=== PATIENT | female | born 1945 | race Caucasian/White ===

== ENCOUNTER 2017-12-02 02:06 | Inpatient (IN) ==
[2017-12-02] MEDS ORDERED: OXYCODONE Oral CONC 10 MG/0.5 ML ORAL.SYG SL PRN ×3 (05:24→09:26)
[2017-12-02] MEDS ORDERED: Ondansetron ODT 4 MG TAB.RAPDIS SL PRN ×2 (05:24→17:07)
[2017-12-02] MEDS ORDERED: Naloxone 0.4 MG/ML INJ IVP PRN ×2 (05:24→17:07)
--- NOTE | 2017-12-02 05:49 | Internal Med History&Physical ---
Date of Encounter: 12/02/17 Time of Encounter: 05:49 Internal Medicine - H&P: HPI Chief complaint: abdominal pain Admitted From: Hospital to Hospital Transfer Plans for Post Hospital Care: Home History of present illness: Ms. RICHARD is a 72 year old female hx gastric sleeve presented to [place] ED for abdominal pain. Onset at 5 pm at eating hamburger a [employer] followed by one episode of vomiting. She had bowel movement his morning that was hard but no red blood, white mucus or dark tarry. She was able to tolerate breakfast this morning with out difficulty. Associated symptoms low back pain. In [place] ED, found to have irregular heart rhythm with HR 66, BP 182/83 RR 17 , 100% RA. CT showed small bowel obstruction and pancreatic duct dilatation. WBC 17.9. CMP mostly normal but alk phos 143 and glucose 139. CRP and Lactic acid wnl. Lipase and Amylase wnl. Her blood pressure was elevated at 188/120 but came down to 158/101 after treated with hydralazine. Her pain was treated with three doses of Dilaudid 1mg. Given 1 L IVF and IV zosyn. PMHx of HLD, hearing deficit, and VÍCTOR. Obesity and HTN resolved after 50 lbs weight loss post gastric sleeve in February 2017. Surgical history also includes hysterectomy. No family history of DM, IBS or IBD. She quit smoking over 30 years ago. Denies EtOH or Illicit drug use. Past Med Surg Social Fam HX - Social History Smoking Status: Never smoker Smokeless Tobacco Status: No Alcohol use: none Drug use: none - Family History Mother Living Status: Hx Family Cardiac Disorders: No Hx Family Respiratory Disorders: No Hx Family Cancer: No Hx Family GI Disorders: No Hx Family Genitourinary Disorders: No Hx Family Endocrine Disorder: No Hx Family Musculoskeletal Disorders: No Hx Family Neuromuscular Disorders: No Hx Family Neurologic Disorders: No Hx Family HEENT Disorders: No Hx Family Autoimmune Disorders: No Hx Family Reproductive Disorders: No Hx Family Psychosocial Disorders: No Hx Family Medical Disorders: No Father Living Status: Hx Family Cardiac Disorders: Yes Hx Family Respiratory Disorders: No Hx Family Cancer: No Hx Family GI Disorders: No Hx Family Genitourinary Disorders: No Hx Family Endocrine Disorder: No Hx Family Musculoskeletal Disorders: No Hx Family Neuromuscular Disorders: No Hx Family Neurologic Disorders: No Hx Family HEENT Disorders: No Hx Family Autoimmune Disorders: No Hx Family Reproductive Disorders: No Hx Family Psychosocial Disorders: No Hx Family Medical Disorders: No Internal Medicine - H&P: Meds 3 Allergy/AdvReac Type Severity Reaction Status Date / Time No Known Allergies Allergy Verified 12/02/17 05:39 All Systems PM: A 10-system review of systems was performed and is negative for pertinent findings except as documented above in the HPI. - Constitutional Constitutional: weight loss, no fatigue, no fever(s) Additional comments: loss of 51 lb since Feb 2017 due t gastric sleeve - EENT Eyes: no blurry vision Nose, mouth and throat: nasal congestion - Cardiovascular Cardiovascular ROS IM: no chest pain, no edema, no irregular heart rhythm, no lightheadedness, no palpitations - Respiratory Respiratory: no cough, no dyspnea on exertion, no wheezing - Gastrointestinal Gastrointestinal: abdominal pain, constipation, nausea, vomiting, no diarrhea, no excessive flatus - Genitourinary Genitourinary: no dysuria, no hematuria, no urinary frequency - Musculoskeletal Musculoskeletal ROS IM: no joint swelling, no tingling - Neurological Neurological ROS: no confusion, no dizziness, no headache(s) - Constitutional General appearance: Present: mild distress, A&O X 3, answers questions appropriately Exam: drowsy and slurring her words - Head Head exam: Present: atraumatic, normocephalic - Eye Pupils: Present: fixed, miosis. Absent: mydriatic - ENT ENT exam: Present: mucous membranes dry, normal oropharynx - Neck Neck exam general surgery: Absent: lymphadenopathy, tenderness - Respiratory Respiratory exam: Present: CTAB. Absent: rales, wheezes - Cardiovascular Cardiovascular exam: Present: RRR, tachycardia. Absent: gallop, rubs - GI/Abdominal GI/Abdominal exam: Present: hypoactive bowel sounds, soft, tenderness. Absent: guarding, rebound Additional comments: diffuse abdominal tenderness worse in epigastric region - Expanded GI/Abdominal Exam GI/Abdominal exam expanded: Present: Shannon's sign - Extremities Exam Extremities exam: Present: full ROM, radial pulses palpable and symmetrical. Absent: pedal edema, tenderness - Back Exam Back exam: Present: full ROM, normal inspection. Absent: CVA tenderness (L), CVA tenderness (R), tenderness - Psychiatric Psychiatric exam: Present: normal affect, normal mood - Skin Skin exam: Absent: diaphoretic, erythema - Assessment and plan (1) Small bowel obstruction Current Visit: Yes Status: Acute Assessment and plan: CT abd report from [place] shows "closed loop small bowel obstruction" and "dilated pancreatic duct with out obvious cause" - Surgery already consulted by [place] ED -NPO - place NG - Zofran PRN - Ketorolac PRN - IVF NS 1L (2) Pancreatic duct dilated Current Visit: Yes Status: Acute Assessment and plan: CT abd "dilated pancreatic duct with out obvious cause" - radiology recommended MRCP - imaging CD is being uploaded - consult GI but call not completed yet (3) Elevated blood pressure reading Current Visit: Yes Status: Acute Assessment and plan: History of HTN that resolved post gastric sleeve weight loss but elevated BP reading at [facility] of 180/120 down to 158/101 after hydralazine - hydralazine PRN for SBP over 160 (4) Obstructive sleep apnea Current Visit: Yes Status: Acute Assessment and plan: CPAP at night (5) Hyperlipidemia Current Visit: Yes Status: Acute Assessment and plan: hold PO medications (6) Irregular heart rhythm Current Visit: Yes Status: Acute Assessment and plan: Irregular rhythm noted in ED course but tachycardic and regular on admit - EKG: sinus tachycardia (7) DVT prophylaxis Current Visit: Yes Status: Acute Assessment and plan: heparin sq - Time Spent With Patient Total time spent is greater than 50% in coordination of care (as documented) at patient's floor/unit and/or counseling patient: Greater than 35 minutes
[2017-12-02] MEDS ORDERED: Ketorolac 15 MG/ML VIAL IVP PRN (05:56)
[2017-12-02] MEDS ORDERED: 0.9 % Sodium Chloride 1,000 ML IVC SCH (06:00)
[2017-12-02] MEDS ORDERED: *HR* Morphine 2 MG/ML SYRINGE IVP PRN (07:10)
[2017-12-02 07:56] LABS: Alanine Aminotransferase 15 Units/L (7-52); Albumin 4.1 g/dL (3.5-5.7); Albumin/Globulin Ratio 1.2 (1.1-2.2); Alkaline Phosphatase 139 Units/L (34-104); Aspartate Amino Transferase 19 Units/L (13-39); BUN/Creatinine Ratio 27 (6-26); Basophils % 0.1 %; Bilirubin,Total 0.3 mg/dL (0.3-1.0); Blood Urea Nitrogen 27 mg/dL (8-23); Calcium 9.7 mg/dL (8.6-10.3); Carbon Dioxide 22 mEq/L (23-29); Chloride 104 mEq/L (98-107); Globulin 3.4 g/dL (2.4-3.5); Glucose 316 mg/dL (70-105); Hematocrit 47.5 % (35.3-44.9); Immature Granulocytes % 0.5 % (0-4); Lymphocytes # 1.2 K/mcL (0.6-4.6); Lymphocytes % 5.7 %; Mean Corpuscular HGB Conc 33.7 g/dL (31.6-35.5); Mean Corpuscular Hemoglobin 31.6 pg (28.0-33.3); Mean Corpuscular Volume 93.9 fL (83.0-100.0); Monocytes # 0.8 K/mcL (0.0-1.3); Monocytes % 3.8 %; Neutrophils # 19.4 K/mcL (1.6-8.9); Osmolality,Calculated 305 (280-300); Platelet Count 349 K/mcL (140-400); Potassium 3.3 mEq/L (3.5-5.1); Red Blood Count 5.06 M/mcL (3.82-4.97); Red Cell Distribution Width 13.1 % (11.5-14.5); Segmented Neutrophils % 89.9 %; Sodium 139 mEq/L (136-145); Total Protein 7.5 g/dL (6.4-8.9); eGFR For Non-African Americans 55 (> 60)
[2017-12-02 08:00] LABS: INR 1.1
[2017-12-02] MEDS ORDERED: OXYCODONE Oral CONC 10 MG/0.5 ML ORAL.SYG SL SCH ×2 (08:00)
--- NOTE | 2017-12-02 10:21 | Event Note ---
Date of Encounter: 12/02/17 Time of Encounter: 10:[address] report from outside facility and advises this is a surgical case, will see pt after surgical workup if needed. Call out to hospitalist Aleksandr Mcdonald, awaiting return call.
--- NOTE | 2017-12-02 11:39 | General Surgery Consult Note ---
<Los Mccall R - Last Filed: 12/02/17 11:37> Date of Encounter: 12/02/17 Time of Encounter: 07:45 Assessment and Plan (1) Small bowel obstruction Current Visit: Yes Status: Acute CD from [place] ED was uploaded to the PACs. CT scan was reviewed by Dr. Laureano and found to be consistent with small bowel obstruction. This was discussed with the patient and all questions were answered. Plan: To OR for Exploratory laparotomy today NPO NG to LIWS Comfort care and pain management prn antiemetic IV fluids (2) DVT prophylaxis Current Visit: Yes Status: Acute EPCDs Ambulation ad elian History of Present Illness Consult date: 12/02/17 (Dr. Laureano) Reason for consult: other (SBO) Requesting physician: Sydney Brown History of present illness: Patient is a 72-year-old female with a history of HLD, HTN, obesity, S/P gastric sleeve February of 2017 with subsequent 50 pound weight loss. Patient reports onset of abdominal pain and vomiting yesterday evening at approximately 5 PM after eating dinner. Pain has persisted. Currently not nauseous or vomiting. One bowel movement this morning, firming consistency, no visible blood. Patient denies similar pain. Patient was initially evaluated at the [facility] ED. CT abdomen and pelvis revealed small bowel obstruction and pancreatic duct dilation. WBC 17.9, bp 182/83, tachycardic. Patient was transferred to [facility] for further evaluation and management. Patient has been placed on nothing by mouth diet, NG tube to low intermittent wall suction. Patient reports improvement in pain with pain medication however still persists. Denies hematemesis, melena, hematochezia. Denies chest pain or shortness of breath. Surgical history significant for gastric sleeve and prior hysterectomy. Past Med Surg Social Fam HX - Past Surgical History Surgical History: hysterectomy Additional surgical history: Gastric sleeve- Feb 2017 - Social History Smoking Status: Never smoker Smokeless Tobacco Status: No Alcohol use: none Drug use: none - Family History Mother Living Status: Hx Family Cardiac Disorders: No Hx Family Respiratory Disorders: No Hx Family Cancer: No Hx Family GI Disorders: No Hx Family Genitourinary Disorders: No Hx Family Endocrine Disorder: No Hx Family Musculoskeletal Disorders: No Hx Family Neuromuscular Disorders: No Hx Family Neurologic Disorders: No Hx Family HEENT Disorders: No Hx Family Autoimmune Disorders: No Hx Family Reproductive Disorders: No Hx Family Psychosocial Disorders: No Hx Family Medical Disorders: No Father Living Status: Hx Family Cardiac Disorders: Yes Hx Family Respiratory Disorders: No Hx Family Cancer: No Hx Family GI Disorders: No Hx Family Genitourinary Disorders: No Hx Family Endocrine Disorder: No Hx Family Musculoskeletal Disorders: No Hx Family Neuromuscular Disorders: No Hx Family Neurologic Disorders: No Hx Family HEENT Disorders: No Hx Family Autoimmune Disorders: No Hx Family Reproductive Disorders: No Hx Family Psychosocial Disorders: No Hx Family Medical Disorders: No Medications and Allergies Albuterol Sulfate [Ventolin Hfa] 2 puff IH AD 12/02/17 [History] Atorvastatin [Lipitor] 10 mg PO HS 12/02/17 [History] Calcium Citrate 500 mg PO DAILY 12/02/17 [History] Cholecalciferol (D-3) [Vitamin D] 15,000 unit PO QWEEK 12/02/17 [History] Cyanocobalamin (Vitamin B-12) [Vitamin B-12] 1,000 mcg PO DAILY 12/02/17 [ History] Ferrous Sulfate 0.5 tab PO DAILY 12/02/17 [History] Fluticasone/Salmeterol [Advair 250-50 Diskus] 1 puff IH AD 12/02/17 [History] Multivitamin [One Daily Multivitamin] 1 tab PO DAILY 12/02/17 [History] 3 Allergy/AdvReac Type Severity Reaction Status Date / Time No Known Allergies Allergy Verified 12/02/17 08:30 Review of Systems All systems PM: The remainder of the systems were reviewed and are negative - Constitutional no chills, no fever(s) - Cardiovascular no chest pain, no dyspnea - Gastrointestinal abdominal pain, nausea, vomiting, no coffee ground emesis, no constipation, no diarrhea, no dysphagia, no hematemesis, no hematochezia, no melena, no odynophagia General Surgery Exam Initial Vital Signs Pulse Resp BP Pulse Ox 120 12 127/91 96 12/02/17 05:33 12/02/17 05:33 12/02/17 05:33 12/02/17 05:33 - General physical appearance well developed, well nourished, moderate distress, moderate pain - Eyes PERRL, normal ocular movement - ENT normal mucosa, atraumatic, normocephalic - Neck trachea midline - Respiratory normal expansion, normal respiratory effort - Cardiovascular Cardiovascular exam: Present: tachycardia - Abdomen Abdomen general surgery: Present: bowel sounds present, distended, tender ( diffusely tender to palpation). Absent: rebound - Integumentary Integumentary general surgery: Present: warm and dry - Neurologic Present: CN 2-12 grossly intact - Musculoskeletal Present: normal posture - Psychiatric Psychiatric general surgery: Present: A&Ox3, speech is normal, memory intact Exam Initial Vital Signs Pulse Resp BP Pulse Ox 120 12 127/91 96 12/02/17 05:33 12/02/17 05:33 12/02/17 05:33 12/02/17 05:33 Results - Labs 12/02/17 07:20 12/02/17 07:20 Abnormal lab results WBC 21.6 K/mcL (4.3-11.1) H 12/02/17 07:20 RBC 5.06 M/mcL (3.82-4.97) H 12/02/17 07:20 Hgb 16.0 g/dL (11.5-15.4) H 12/02/17 07:20 Hct 47.5 % (35.3-44.9) H 12/02/17 07:20 Neutrophils # 19.4 K/mcL (1.6-8.9) H 12/02/17 07:20 Potassium 3.3 mEq/L (3.5-5.1) L 12/02/17 07:20 Carbon Dioxide 22 mEq/L (23-29) L 12/02/17 07:20 BUN 27 mg/dL (8-23) H 12/02/17 07:20 Est GFR (Non-Af Amer) 55 (> 60) L 12/02/17 07:20 BUN/Creatinine Ratio 27 (6-26) H 12/02/17 07:20 Glucose 316 mg/dL (70-105) H 12/02/17 07:20 Calculated Osmolality 305 (280-300) H 12/02/17 07:20 Alkaline Phosphatase 139 Units/L (34-104) H 12/02/17 07:20 Diabetes panel 12/02/17 Range/Units 07:20 Sodium 139 (136-145) mEq/L Potassium 3.3 L (3.5-5.1) mEq/L Chloride 104 (98-107) mEq/L Carbon Dioxide 22 L (23-29) mEq/L BUN 27 H (8-23) mg/dL Creatinine 1.00 (0.60-1.20) mg/dL Glucose 316 H (70-105) mg/dL Calcium 9.7 (8.6-10.3) mg/dL AST 19 (13-39) Units/L ALT 15 (7-52) Units/L Alkaline Phosphatase 139 H (34-104) Units/L Albumin 4.1 (3.5-5.7) g/dL Calcium panel 12/02/17 Range/Units 07:20 Calcium 9.7 (8.6-10.3) mg/dL Albumin 4.1 (3.5-5.7) g/dL Pituitary panel 12/02/17 Range/Units 07:20 Sodium 139 (136-145) mEq/L Potassium 3.3 L (3.5-5.1) mEq/L Chloride 104 (98-107) mEq/L Carbon Dioxide 22 L (23-29) mEq/L BUN 27 H (8-23) mg/dL Creatinine 1.00 (0.60-1.20) mg/dL Glucose 316 H (70-105) mg/dL Calcium 9.7 (8.6-10.3) mg/dL Adrenal panel 12/02/17 Range/Units 07:20 Sodium 139 (136-145) mEq/L Potassium 3.3 L (3.5-5.1) mEq/L Chloride 104 (98-107) mEq/L Carbon Dioxide 22 L (23-29) mEq/L BUN 27 H (8-23) mg/dL Creatinine 1.00 (0.60-1.20) mg/dL Glucose 316 H (70-105) mg/dL Calcium 9.7 (8.6-10.3) mg/dL Total Bilirubin 0.3 (0.3-1.0) mg/dL AST 19 (13-39) Units/L ALT 15 (7-52) Units/L Alkaline Phosphatase 139 H (34-104) Units/L Albumin 4.1 (3.5-5.7) g/dL All other labs normal. Consult Discharge Plan - Plan Referrals: NONE,PCP [Primary Care Provider] - <Prem Laureano - Last Filed: 12/02/17 13:38> Date of Encounter: 12/02/17 Review of Systems All systems PM: The remainder of the systems were reviewed and are negative General Surgery Exam Initial Vital Signs Pulse Resp BP Pulse Ox 120 12 127/91 96 12/02/17 05:33 12/02/17 05:33 12/02/17 05:33 12/02/17 05:33 Exam Initial Vital Signs Pulse Resp BP Pulse Ox 120 12 127/91 96 12/02/17 05:33 12/02/17 05:33 12/02/17 05:33 12/02/17 05:33 Results - Labs 12/02/17 07:20 12/02/17 07:20 Abnormal lab results WBC 21.6 K/mcL (4.3-11.1) H 12/02/17 07:20 RBC 5.06 M/mcL (3.82-4.97) H 12/02/17 07:20 Hgb 16.0 g/dL (11.5-15.4) H 12/02/17 07:20 Hct 47.5 % (35.3-44.9) H 12/02/17 07:20 Neutrophils # 19.4 K/mcL (1.6-8.9) H 12/02/17 07:20 Potassium 3.3 mEq/L (3.5-5.1) L 12/02/17 07:20 Carbon Dioxide 22 mEq/L (23-29) L 12/02/17 07:20 BUN 27 mg/dL (8-23) H 12/02/17 07:20 Est GFR (Non-Af Amer) 55 (> 60) L 12/02/17 07:20 BUN/Creatinine Ratio 27 (6-26) H 12/02/17 07:20 Glucose 316 mg/dL (70-105) H 12/02/17 07:20 Calculated Osmolality 305 (280-300) H 12/02/17 07:20 Alkaline Phosphatase 139 Units/L (34-104) H 12/02/17 07:20 Diabetes panel 12/02/17 Range/Units 07:20 Sodium 139 (136-145) mEq/L Potassium 3.3 L (3.5-5.1) mEq/L Chloride 104 (98-107) mEq/L Carbon Dioxide 22 L (23-29) mEq/L BUN 27 H (8-23) mg/dL Creatinine 1.00 (0.60-1.20) mg/dL Glucose 316 H (70-105) mg/dL Calcium 9.7 (8.6-10.3) mg/dL AST 19 (13-39) Units/L ALT 15 (7-52) Units/L Alkaline Phosphatase 139 H (34-104) Units/L Albumin 4.1 (3.5-5.7) g/dL Calcium panel 12/02/17 Range/Units 07:20 Calcium 9.7 (8.6-10.3) mg/dL Albumin 4.1 (3.5-5.7) g/dL Pituitary panel 12/02/17 Range/Units 07:20 Sodium 139 (136-145) mEq/L Potassium 3.3 L (3.5-5.1) mEq/L Chloride 104 (98-107) mEq/L Carbon Dioxide 22 L (23-29) mEq/L BUN 27 H (8-23) mg/dL Creatinine 1.00 (0.60-1.20) mg/dL Glucose 316 H (70-105) mg/dL Calcium 9.7 (8.6-10.3) mg/dL Adrenal panel 12/02/17 Range/Units 07:20 Sodium 139 (136-145) mEq/L Potassium 3.3 L (3.5-5.1) mEq/L Chloride 104 (98-107) mEq/L Carbon Dioxide 22 L (23-29) mEq/L BUN 27 H (8-23) mg/dL Creatinine 1.00 (0.60-1.20) mg/dL Glucose 316 H (70-105) mg/dL Calcium 9.7 (8.6-10.3) mg/dL Total Bilirubin 0.3 (0.3-1.0) mg/dL AST 19 (13-39) Units/L ALT 15 (7-52) Units/L Alkaline Phosphatase 139 H (34-104) Units/L Albumin 4.1 (3.5-5.7) g/dL All other labs normal. - Attending Attestation I examined this patient and my medical decision-making was reviewed with the Resident Physician. I agree with the documented findings, disposition and treatment plan as described except to the extent set forth below. The patient is seen and evaluated with rest and on morning rounds. She appears to have a closed loop obstruction involving the small bowel in the pelvis. This may be from adhesion or volvulus. She is very symptomatic with tremendous pain and nausea. I recommended exploratory laparotomy with possible small bowel resection. We will proceed later today. Next I personally reviewed the CAT scan images. Findings are consistent with closed loop small bowel obstruction in the pelvis Prem Laureano MD FACS
--- NOTE | 2017-12-02 12:45 | Internal Med Progress Note ---
Hospitalist Progress Note - Encounter Date of Encounter: 12/02/17 Time of Encounter: 12:42 - Subjective Interval History: Patient seen and examined at bedside today. Continuing to have persistent abdominal pain as well as nausea. Admitted with abdominal pain nausea and vomiting. CT abdomen and pelvis from [facility] revealed a closed loop small bowel obstruction as well as pancreatic duct dilatation. Surgical history significant for gastric sleeve in February 2017. - Exam Vitals: Temp Pulse Resp BP Pulse Ox 96.4 F L 118 16 88/69 98 12/02/17 11:30 12/02/17 11:30 12/02/17 11:30 12/02/17 11:30 12/02/17 11:30 Exam: PHYSICAL EXAMINATION: GENERAL: The patient is an ill-appearing elderly female in distress due to abdominal pain. She is alert and oriented 3 HEENT: Head is normocephalic and atraumatic. Extraocular muscles are intact. Pupils are equal, round, and reactive to light and accommodation. Nares appeared normal. Mouth is well hydrated and without lesions. Mucous membranes are moist. NECK: Supple. No carotid bruits. No lymphadenopathy or thyromegaly. LUNGS: Clear to auscultation. HEART: Regular rate and rhythm without murmur. ABDOMEN: Soft, and nondistended. Positive bowel sounds. No hepatosplenomegaly was noted. Diffuse tenderness to palpation, no rebound noted EXTREMITIES: Without any cyanosis, clubbing, rash, lesions or edema. NEUROLOGIC: Cranial nerves II through XII are grossly intact. SKIN: No ulceration or induration present, warm and dry. - Assessment and Plan (1) Small bowel obstruction Current Visit: Yes Status: Acute (2) Hyperlipidemia Current Visit: Yes Status: Acute (3) Irregular heart rhythm Current Visit: Yes Status: Acute (4) Obstructive sleep apnea Current Visit: Yes Status: Acute (5) Pancreatic duct dilated Current Visit: Yes Status: Acute (6) History of hypertension Current Visit: Yes Status: Acute (7) Sepsis Current Visit: Yes Status: Acute (8) Nausea and vomiting Current Visit: Yes Status: Acute (9) DVT prophylaxis Current Visit: Yes Status: Acute - Summary of Assessment and Plan Summary of Assessment and Plan: Mr. Baltazar is a 72-year-old female who presents from [place] ED for abdominal pain, nausea and vomiting. CT of abdomen and pelvis obtained from [facility] showing a closed loop small bowel obstruction and pancreatic duct dilatation. At that time she was found to have an elevated white count of 17.9. Subsequently she was sent to [facility] for further treatment evaluation and likely surgical intervention. Per my assessment this morning the patient is continuing to have abdominal pain with diffuse abdominal tenderness to palpation , she is tachycardic and hypotensive and hypothermic as well and she now appears to be septic. There is an NG tube in place which is currently on intermittent low wall suction. She is continuing to have nausea. I have Discussed her case with GI; who has advised surgical consultation. Of note the patient was found to have pancreatic ductal dilatation will likely need follow- up with MRCP at some time. However, current treatment focused on small bowel obstruction. Surgery seeing in consultation, appreciate recommendations and thank you. Nursing staff relayed to me that the surgeon (Dr. Laureano) states he will take the patient for surgery this evening. In the meantime giving concern for sepsis I will start the patient on Zosyn every 8 hours IV piggyback. Additionally, continue to treat with antiemetics and oxycodone for pain. I will obtain a stat lactic acid now. She is receiving a 500 mL normal saline bolus due to hypotension. She will be placed on a bear hugger at this time due to hypothermia, plan is to transfer to higher level of care [address] [place] [address] ICU stepdown unit. This has been discussed with patient management team who is working on placing the patient. DIAGNOSIS: 1-small bowel obstruction--surgery following an recommendation, appreciate recommendations and thank you. Patient to undergo surgical intervention this afternoon 2-sepsis--tachycardia, leukocytosis, hypotension, hypothermia, closed loop small bowel obstruction; obtain stat lactic acid now, start Zosyn, implement. However, transfer to unit with higher level of acuity 3-pancreatic duct dilatation--consult GI when appropriate, patient will need MRCP for further evaluation 4-hypertension--per history, however presently she is hypotensive in the setting of sepsis; hold anti-HTN medications 5-obstructive sleep apnea--CPAP at night 6-hyperlipidemia--take statin at home however is currently nothing by mouth, resume when appropriate 7-nausea and vomiting--continue antiemetics 8-irregular heart rhythm--continues to have tachycardia in the setting of sepsis , continuous telemetry and monitor closely monitor telemetry for arrhythmias and monitoring the dynamic compromise 9-DVT prophylaxis--EPCD's 10-hypotension--has a history of hypertension however in the setting of sepsis patient is hypotensive. Continue to treat with IV fluid bolus. Hold anti-HTN medications. - Time Spent with Patient Total time spent is greater than 50% in coordination of care (as documented) at patient's floor/unit and/or counseling patient: less than 15 minutes Plan of Care Discussed with: patient Internal Medicine: Result - Labs CBC & Chem 7: 12/02/17 07:20 12/02/17 07:20 Labs: Short CBC 12/02/17 Range/Units 07:20 WBC 21.6 H (4.3-11.1) K/mcL Hgb 16.0 H (11.5-15.4) g/dL Hct 47.5 H (35.3-44.9) % Plt Count 349 (140-400) K/mcL Neutrophils # 19.4 H (1.6-8.9) K/mcL BMP 12/02/17 07:20 Sodium 139 Potassium 3.3 L Chloride 104 Carbon Dioxide 22 L BUN 27 H Creatinine 1.00 Glucose 316 H Calcium 9.7 Liver Function 12/02/17 Range/Units 07:20 Total Bilirubin 0.3 (0.3-1.0) mg/dL AST 19 (13-39) Units/L ALT 15 (7-52) Units/L Alkaline Phosphatase 139 H (34-104) Units/L Albumin 4.1 (3.5-5.7) g/dL - ABG Interpretation ABG results: PT/INR, D-dimer PT 12.0 Seconds (9.4-12.1) 12/02/17 07:20 - Impressions Impressions KUB X-Ray 12/02/17 06:37 IMPRESSION: Enteric tube tip is excluded on this exam however the side port projects over the stomach. D/ / Virginia Jordan MD / Virginia Jordan MD Interpreting Provider: Virginia Jordan MD Consult Discharge Plan - Plan Referrals: NONE,PCP [Primary Care Provider] - (2) Hyperlipidemia Qualifiers: Hyperlipidemia type: unspecified Qualified Code(s): E78.5 - Hyperlipidemia, unspecified
[2017-12-02] MEDS ORDERED: 0.9 % Sodium Chloride 500 ML IVC PRN ×2 (12:49→17:07)
[2017-12-02] MEDS ORDERED: *HR* Heparin 5,000 UNIT/ML VIAL SQ SCH (14:00)
[2017-12-02] MEDS ORDERED: 0.9 % Sodium Chloride 1,000 ML IVC ONE ×2 (14:30→17:07)
[2017-12-02] MEDS ORDERED: *HR* FentaNYL (PF) 100 MCG/2 ML VIAL ONE (14:58)
[2017-12-02] MEDS ORDERED: *HR* Succinylcholine 200 MG/10 ML VIAL IVP ONE (14:59)
[2017-12-02] MEDS ORDERED: *HR* Propofol 200 MG/20 ML VIAL IVP ONE (14:59)
[2017-12-02] MEDS ORDERED: Ondansetron 4 MG/2 ML VIAL ONE (14:59)
[2017-12-02] MEDS ORDERED: Dexamethasone 4 MG/ML VIAL ONE (14:59)
[2017-12-02] MEDS ORDERED: Lidocaine -MPF 2% 2 ML VIAL ONE (14:59)
[2017-12-02] MEDS ORDERED: *HR* Rocuronium Bromide 50 MG/5 ML VIAL ONE (14:59)
--- NOTE | 2017-12-02 15:04 | Anesthesia Evaluation PreOp ---
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 Any Significant HX Other Medical History: Denies Any Significant HX, GERD (vomiting, abdominal pain ) Anesthesia History: Past Anesthesia Alcohol Use: none Drug use: none Medications and Allergies Albuterol Sulfate [Ventolin Hfa] 2 puff IH AD 12/02/17 [History] Atorvastatin [Lipitor] 10 mg PO HS 12/02/17 [History] Calcium Citrate 500 mg PO DAILY 12/02/17 [History] Cholecalciferol (D-3) [Vitamin D] 15,000 unit PO QWEEK 12/02/17 [History] Cyanocobalamin (Vitamin B-12) [Vitamin B-12] 1,000 mcg PO DAILY 12/02/17 [ History] Ferrous Sulfate 0.5 tab PO DAILY 12/02/17 [History] Fluticasone/Salmeterol [Advair 250-50 Diskus] 1 puff IH AD 12/02/17 [History] Multivitamin [One Daily Multivitamin] 1 tab PO DAILY 12/02/17 [History] 3 Allergy/AdvReac Type Severity Reaction Status Date / Time No Known Allergies Allergy Verified 12/02/17 08:30 - Meds/Allergy Pre-op Review Medications Reviewed: Yes Allergies Reviewed: Yes Beta Blockers on Current Med List: No Anesthesia Results - Labs 12/02/17 07:20 12/02/17 07:20 - Imaging EKG: pending Anesthesia Exam Selected Entries 12/02/17 12:45 Temperature 97.5 F L Pulse Rate 115 Respiratory Rate 17 Blood Pressure 104/72 O2 Sat by Pulse Oximetry 97 Weight: 67 kg NPO (# of Hours): over 8 hours/NG in place - HEENT Pupil (Motor): Pupils equal Mallampati: II Teeth: Edentulous Oral Opening: Greater than 3 - Cardiac Rhythm: Regular (tachycardic) - Pulmonary Breath Sounds: bilateral Rhonchi Respiratory Effort: Symmetrical - Additional Findings Ill appearing patient with low to normal blood pressure, even though usually hypertensive. Presumed impending sepsis, will fluid resuscitate prior to OR. Anesthesia Assess/Plan ASA Score: 3, E Modified Toribio Scale for Level of Consciousness: Cooperative, oriented, and tranquil Anesthetic Plan: General Monitoring Plan: Standard Monitors, A-Line Recovery Plan: PACU (Discussed GA, risks. Agreed to proceed.)
[2017-12-02] MEDS ORDERED: Heparin 1,000 UNITS/500 mL 500 ML ONE (15:07)
[2017-12-02] MEDS ORDERED: CefOXitin 1,000 MG VIAL ONE (15:15)
[2017-12-02] MEDS ORDERED: Albumin Human 5% 25.0 GM/500 ML VIAL ONE ×3 (15:17→17:16)
[2017-12-02] MEDS ORDERED: *HR* Midazolam HCl 2 MG/2 ML VIAL ONE (15:43)
[2017-12-02] MEDS ORDERED: Piperacillin/Tazobactam 3.375 GM in 0.9 % Sodium Chloride Mini Bag 100 ML IVPB SCH (16:00)
[2017-12-02] MEDS ORDERED: *HR* PHENYLEPHRINE 1,000 MCG/10 ML SYRINGE IVP ONE (16:02)
--- NOTE | 2017-12-02 16:41 | Operative Note ---
Date of procedure: 12/02/17 Pre-op diagnosis: Small bowel obstruction Post-op diagnosis: other (150 cm small bowel necrosis) Procedure: Small bowel resection 150 cm Anesthesia: GETA Surgeon: Prem Laureano Was there an liaison inspection laboratory assistant present: No Estimated blood loss (cc): 50 Specimen: 150 cm ileum Condition: critical Disposition: ICU Procedure in Detail: After informed consent patient was taken to the major operative suite. During transport it was noted she was hypotensive . resuscitation was started the moment she reached the operating room. She had pain out of proportion to physical examination. She was taken to the major operative suite and a Ledezma catheter was placed and an arterial line was placed. The abdomen was prepped and draped in sterile fashion utilizing ChloraPrep standard draping techniques. Timeout was taken and the patient was identified. I performed a midline laparotomy and immediately noted gut. With further exploration there appeared to be a midgut volvulus around a single adhesive band. I divided the band and release the volvulus. The small bowel was completely necrotic with hemorrhagic necrosis. I divided the small bowel proximal with MEGAN and distal with MEGAN. Using clamps and hemostatic ligatures I divided the mesentery to the area of bowel necrosis. The small bowel that was necrotic was completely resected. This was measured. 150 cm of small bowel was resected. The area of resection contain day hemorrhagic Meckel's diverticulum but this was not the point of volvulus. The terminal ileum was divided about 20 cm proximal to the cecum. I observed the small bowel for 15 minutes. The small bowel was pink and well vascularized the 2 areas of small bowel that I selected were proximal and distal to the area of adhesion and not involved in volvulus. I decided a primary anastomosis the circumflex the patient. I created a functional end-to- end anastomosis using MEGAN and TA 60. The staple anastomosis was circumferentially reinforced with interrupted 3-0 silk in interrupted 2-0 silk. The mesentery was closed with interrupted 3-0 silk and 2-0 silk. The abdomen was irrigated with copious amounts of antibiotic containing solution the midline was closed with looped 0 PDS and skin was closed with interrupted Vicryl and skin clips. She was hypotensive at the beginning of the procedure and required pressor agents. At the end of the case she was still on pressor agents but her systolic pressure was 110. She is transferred to the intensive care unit for ongoing therapy
[2017-12-02] MEDS ORDERED: Artificial Tears SOLN 15 ML BOTTLE BOTH EYES PRN ×2 (16:44→17:07)
[2017-12-02] MEDS ORDERED: Dexmedetomidine HCl 400 MCG/100 ML MLS IVC SCH (16:45)
[2017-12-02] MEDS ORDERED: FentaNYL (PF) 1,000 MCG in 0.9 % Sodium Chloride 80 ML IVC SCH (16:45)
[2017-12-02] MEDS ORDERED: Pantoprazole 40 MG VIAL IVP SCH (16:45)
[2017-12-02] MEDS ORDERED: Norepinephrine 4 MG in D5% in Water 250 ML IVC SCH (16:45)
[2017-12-02 17:11] LABS: Mean Corpuscular HGB Conc 33.9 g/dL (31.6-35.5); Mean Corpuscular Hemoglobin 32.3 pg (28.0-33.3); Mean Corpuscular Volume 95.1 fL (83.0-100.0); Mean Platelet Volume 11.8 fL (9.4-12.4); Platelet Count 252 K/mcL (140-400); Red Blood Count 3.47 M/mcL (3.82-4.97)
[2017-12-02 17:12] LABS: Hemoglobin 11.2 g/dL (11.5-15.4)
[2017-12-02 17:12] LABS: ABG Base Excess -7 mEq/L (-2 to 3); ABG HCO3 19 mEq/L (21-27); ABG Oxygen Saturation 98 % (95-98); ABG PCO2 37 mmHg (35-45); ABG PH 7.32 pH Units (7.32-7.45); ABG PO2 115 mmHg (85-104); ABG TCO2 20 mEq/L (20-26); Blood Gas Modality ASSIST CONTROL; Blood Gas PEEP 5 cm H2O; Blood Gas Respiration Rate 16; Blood Gas VT 400 cc
[2017-12-02 17:29] LABS: Alanine Aminotransferase 9 Units/L (7-52); Albumin 3.6 g/dL (3.5-5.7); Alkaline Phosphatase 76 Units/L (34-104); Aspartate Amino Transferase 15 Units/L (13-39); BUN/Creatinine Ratio 27 (6-26); Bilirubin,Total 0.3 mg/dL (0.3-1.0); Blood Urea Nitrogen 28 mg/dL (8-23); Calcium 8.4 mg/dL (8.6-10.3); Carbon Dioxide 20 mEq/L (23-29); Chloride 116 mEq/L (98-107); Globulin 1.8 g/dL (2.4-3.5); Glucose 173 mg/dL (70-105); Osmolality,Calculated 306 (280-300); Potassium 4.1 mEq/L (3.5-5.1); Sodium 143 mEq/L (136-145); Total Protein 5.4 g/dL (6.4-8.9); eGFR For Non-African Americans 53 (> 60)
[2017-12-02 17:30] LABS: Lymphocytes # 2.1 K/mcL (0.6-4.6); Monocytes # 2.1 K/mcL (0.0-1.3); Neutrophils # 22.3 K/mcL (1.6-8.9); Platelet Estimate Normal (Normal)
--- NOTE | 2017-12-02 17:55 | Procedure Note ---
Date of procedure: 12/02/17 Pre-op diagnosis: Septic shock Post-op diagnosis: same Procedure: Central venous catheter insertion Surgeon: Martin Pacheco Was there an assistant attorney general present: No Estimated blood loss (cc): 0 Specimen: none Pathology: none sent Procedures: Internal Med - Central Line Placement Right Femoral Consent Obtained: written consent (by (patient sedated critically ill) ) Time out performed: Yes Patient placed on monitor/pulse ox: Yes MD prep: mask, gown, gloves, other Central line prep: Chlorhexidine scrub, sterile drapes applied Amount of anesthesia used (mls): 8 Ultrasound used for placement: Yes Central line lumen inserted: triple Post Procedure: sutured in place, good blood return, all ports aspirated, flushed, capped, sterile dressing applied, dark venous blood, biodisk applied Post procedure x-ray: other Patient tolerated procedure: well, no complications Complications: none
[2017-12-02 17:59] LABS: Magnesium 1.6 mg/dL (1.6-2.6)
[2017-12-02 18:06] LABS: Troponin I 1.03 ng/mL (< 0.04)
[2017-12-02] MEDS: Dexmedetomidine HCl 400 MCG/100 ML MLS IVC SCH (18:15)
[2017-12-02] MEDS: Piperacillin/Tazobactam 3.375 GM in 0.9 % Sodium Chloride Mini Bag 100 ML IVPB SCH (18:19)
--- NOTE | 2017-12-02 19:00 | Pulmonology Consult Note ---
<Fady Grant - Last Filed: 12/02/17 21:44> Date of Encounter: 12/02/17 Time of Encounter: 19:00 Assessment and Plan (1) Septic shock Current Visit: Yes Status: Acute Patient met septic shock criteria with leukocytosis WBC 26.5, tachycardia 120, and hypotension despite IV fluid resuscitation Bowel necrosis as likely source of infection, differential includes SBP Patient started on Levophed head and given Albumin 2 to maintain MAP greater than 65 Blood cultures pending Continue Zosyn (day 1) De-escalate antibiotics based on culture results Continue close monitoring (2) Ischemic necrosis of small bowel Current Visit: Yes Status: Acute Postop day 1 status post 150 cm small bowel resection due to small bowel necrosis Continue postop pain control, PPI, and antiemetics NG tube in place on low intermittent suction General surgery following (3) Endotracheally intubated Current Visit: Yes Status: Acute Patient remains intubated status post bowel resection Continue light Precedex ABG reviewed, Continue current ventilator settings and plan to extubate once clinically improving Repeat ABG pending (4) Non-sustained ventricular tachycardia Current Visit: Yes Status: Acute Patient has had several runs of non-sustained V. tach on telemetry Pacer pads in place on chest Patient is currently in sinus bradycardia Continue telemetry monitoring (5) Elevated troponin Current Visit: Yes Status: Acute Elevated troponin in the setting of septic shock and abdominal surgery Initial EKG 12/02/17 6:09 revealed sinus tachycardia heart rate 116, flipped T waves V2 through V5 Most recent EKG 12/02/17 17:46 revealed sinus rhythm heart rate 71, no signs of ischemia Patient denies chest pain at this time, continue monitoring (6) HTN (hypertension) Current Visit: No Status: Chronic Hold antihypertensive meds secondary to septic shock Continue close monitoring Qualifiers: Hypertension type: essential hypertension Qualified Code(s): I10 - Essential (primary) hypertension (7) Hyperlipidemia Current Visit: Yes Status: Chronic Resume home statin once extubated Qualifiers: Hyperlipidemia type: unspecified Qualified Code(s): E78.5 - Hyperlipidemia , unspecified (8) History of gastric bypass Current Visit: No Status: Chronic Continue current therapy (9) Obstructive sleep apnea Current Visit: Yes Status: Chronic Patient is currently on ventilator, resume CPAP at bedtime once extubated (10) DVT prophylaxis Current Visit: Yes Status: Acute EPCDs History of Present Illness Consult date: 12/02/17 Requesting physician: Prem Laureano Reason for consult: other Chief complaint: Abdominal pain History of present illness: Ms. Baltazar is a 72-year-old female with a past medical history of gastric sleeve, hypertension, hyperlipidemia, and VÍCTOR who was transferred from [facility] secondary to small bowel obstruction. History of present illness was obtained from the medical record because the patient was intubated during the time of my exam and unable to answer questions after returning from surgery. Records from [facility] revealed vital signs HR 66, BP 182/83 RR 17, 100% RA and labs revealed WBC 17.9, normal lactic acid level, CRP, amylase, and lipase levels. CT abdomen pelvis revealed small bowel obstruction and pancreatic duct dilatation. She was evaluated by general surgery and underwent resection of 150 cm necrotic small bowel and transfer to ICU intubated. Patient required central line placement secondary to refractory hypotension/septic shock despite IV fluid resuscitation. WBC increased to 26.5, hemoglobin dropped from 16 to 11.2, and troponin level was 1.03. Patient had nonsustained ventricular tachycardia on telemetry. Initial EKG showed flipped T waves and repeat EKGs show no signs of ischemia. Past Med Surg Social Fam HX - Past Medical History Medical history: hyperlipidemia, hypertension Additional medical history: VÍCTOR - Past Surgical History Surgical History: hysterectomy Additional surgical history: Gastric sleeve- Feb 2017 - Social History Smoking Status: Never smoker Smokeless Tobacco Status: No Alcohol use: none Drug use: none Current living situation: Home, With Family - Family History Mother Living Status: Hx Family Cardiac Disorders: No Hx Family Respiratory Disorders: No Hx Family Cancer: No Hx Family GI Disorders: No Hx Family Genitourinary Disorders: No Hx Family Endocrine Disorder: No Hx Family Musculoskeletal Disorders: No Hx Family Neuromuscular Disorders: No Hx Family Neurologic Disorders: No Hx Family HEENT Disorders: No Hx Family Autoimmune Disorders: No Hx Family Reproductive Disorders: No Hx Family Psychosocial Disorders: No Hx Family Medical Disorders: No Father Living Status: Hx Family Cardiac Disorders: Yes Hx Family Respiratory Disorders: No Hx Family Cancer: No Hx Family GI Disorders: No Hx Family Genitourinary Disorders: No Hx Family Endocrine Disorder: No Hx Family Musculoskeletal Disorders: No Hx Family Neuromuscular Disorders: No Hx Family Neurologic Disorders: No Hx Family HEENT Disorders: No Hx Family Autoimmune Disorders: No Hx Family Reproductive Disorders: No Hx Family Psychosocial Disorders: No Hx Family Medical Disorders: No Medications and Allergies Albuterol Sulfate [Ventolin Hfa] 2 puff IH AD 12/02/17 [History] Atorvastatin [Lipitor] 10 mg PO HS 12/02/17 [History] Calcium Citrate 500 mg PO DAILY 12/02/17 [History] Cholecalciferol (D-3) [Vitamin D] 15,000 unit PO QWEEK 12/02/17 [History] Cyanocobalamin (Vitamin B-12) [Vitamin B-12] 1,000 mcg PO DAILY 12/02/17 [ History] Ferrous Sulfate 0.5 tab PO DAILY 12/02/17 [History] Fluticasone/Salmeterol [Advair 250-50 Diskus] 1 puff IH AD 12/02/17 [History] Multivitamin [One Daily Multivitamin] 1 tab PO DAILY 12/02/17 [History] 3 Allergy/AdvReac Type Severity Reaction Status Date / Time No Known Allergies Allergy Verified 12/02/17 08:30 ROS unobtainable: due to endotracheal tube All Systems: The remainder of the systems were reviewed and are negative Physical Examination Vital Signs: Vital Signs, Last 4 Hours Temp Pulse Resp BP Pulse Ox 12/02/17 18:48 96.6 F L 70 16 118/63 99 12/02/17 17:59 96.7 F L 80 16 129/73 100 12/02/17 17:35 78 14 138/80 100 12/02/17 17:30 96.9 F L 81 14 120/72 100 12/02/17 17:20 65 14 116/62 99 12/02/17 17:05 75 14 134/75 99 12/02/17 16:57 16 100 12/02/17 16:50 96.9 F L 82 14 120/68 100 General appearance: no acute distress (Intubated, awake off sedation) Eyes: nonicteric ENT: oropharynx dry (Intubated) Neck: supple Effort: normal Inspection: normal Auscultation: bilateral: diminished breath sounds (Intubated, equal breath sounds) Cardiovascular: regular rate and rhythm (Bradycardia), PVC's noted (Nonsustained ) Gastrointestinal: normoactive bowel sounds, non-distended Integumentary: other (Pale, anterior abdominal incision dressing intact) Extremities: no edema, other (Warm) Musculoskeletal: no deformities Gait: normal posture non-focal exam, pupils equal and round (Able to follow commands and shake head to answer questions) Ventilator Settings Ventilator Settings: Ventilator Settings, Last 8 Hours Ventilator Tidal Volume 400 Setting Ventilator Tidal Volume 400 Setting Ventilator Tidal Volume 400 Setting Ventilator Tidal Volume 400 Setting Ventilator Respiratory Rate 16 Setting Ventilator Respiratory Rate 16 Setting Ventilator Respiratory Rate 16 Setting Ventilator Respiratory Rate 16 Setting Actual Respiratory Rate 16 Actual Respiratory Rate 16 Actual Respiratory Rate 16 Positive End Expiratory 5 Pressure Positive End Expiratory 5 Pressure Positive End Expiratory 5 Pressure Positive End Expiratory 5 Pressure Peak Inspiratory Airway 26 Pressure Peak Inspiratory Airway 29 Pressure Peak Inspiratory Airway 25 Pressure Results - Laboratory Findings CBC and BMP: 12/02/17 16:39 12/02/17 16:39 ABG ABG pH 7.32 pH Units (7.32-7.45) 12/02/17 17:10 ABG pCO2 37 mmHg (35-45) 12/02/17 17:10 ABG pO2 115 mmHg (85-104) H 12/02/17 17:10 ABG O2 Saturation 98 % (95-98) 12/02/17 17:10 PT/INR, D-dimer PT 12.0 Seconds (9.4-12.1) 12/02/17 07:20 Abnormal lab findings: Abnormal lab results WBC 26.5 K/mcL (4.3-11.1) H 12/02/17 16:39 RBC 3.47 M/mcL (3.82-4.97) L 12/02/17 16:39 Hgb 11.2 g/dL (11.5-15.4) L D 12/02/17 16:39 Hct 33.0 % (35.3-44.9) L 12/02/17 16:39 Neutrophils # 22.3 K/mcL (1.6-8.9) H 12/02/17 16:39 Monocytes # 2.1 K/mcL (0.0-1.3) H 12/02/17 16:39 ABG pO2 115 mmHg (85-104) H 12/02/17 17:10 ABG HCO3 19 mEq/L (21-27) L 12/02/17 17:10 ABG Base Excess -7 mEq/L (-2 to 3) L 12/02/17 17:10 Chloride 116 mEq/L (98-107) H 12/02/17 16:39 Carbon Dioxide 20 mEq/L (23-29) L 12/02/17 16:39 BUN 28 mg/dL (8-23) H 12/02/17 16:39 Est GFR (Non-Af Amer) 53 (> 60) L 12/02/17 16:39 BUN/Creatinine Ratio 27 (6-26) H 12/02/17 16:39 Glucose 173 mg/dL (70-105) H 12/02/17 16:39 POC Glucose 171 mg/dL (70-99) H 12/02/17 17:11 Calculated Osmolality 306 (280-300) H 12/02/17 16:39 Calcium 8.4 mg/dL (8.6-10.3) L 12/02/17 16:39 Troponin I 1.03 ng/mL (< 0.04) H* 12/02/17 16:39 Serum Total Protein 5.4 g/dL (6.4-8.9) L 12/02/17 16:39 Globulin 1.8 g/dL (2.4-3.5) L 12/02/17 16:39 - Microbiology Findings Microbiology Findings: Microbiology, Last 48 Hours 12/02/17 17:10 Blood Culture - Preliminary Peripheral Venipuncture Culture is incubating and being continuously monitored for growth. Final report to follow. 12/02/17 17:14 Blood Culture - Preliminary Peripheral Venipuncture Culture is incubating and being continuously monitored for growth. Final report to follow. - Diagnostic Findings Chest x-ray: report reviewed, image reviewed Additional studies: EKG 12/02/17 6:09 revealed sinus tachycardia heart rate 116, flipped T waves V2 through V5 EKG 12/02/17 15:19 revealed sinus tachycardia heart rate 113 EKG 12/02/17 17:46 revealed sinus rhythm heart rate 71, no signs of ischemia ITS Impressions KUB X-Ray 12/02/17 06:37 IMPRESSION: Enteric tube tip is excluded on this exam however the side port projects over the stomach. D/ / Virginia Jordan MD / Virginia Jordan MD Interpreting Provider: Virginia Jordan MD Chest X-Ray 12/02/17 16:55 IMPRESSION: Endotracheal and nasogastric tube placement. Small pleural effusions. Mild pulmonary edema. D/ / Mannie Novak MD / Mannie Novak MD Interpreting Provider: Mannie Novak MD - Clinical Findings Intake & Output: Intake & Output 12/02/17 12/02/17 12/02/17 07:59 15:59 23:59 Intake Total 0 / 0 512 / 512 Output Total 110 / 110 150 / 150 Balance -110 / -110 362 / 362 Weight 67.2 kg Consult Discharge Plan - Plan Referrals: NONE,PCP [Primary Care Provider] - <Martin Pacheco W - Last Filed: 12/03/17 06:45> Date of Encounter: 12/03/17 All Systems: The remainder of the systems were reviewed and are negative Physical Examination Vital Signs: Vital Signs, Last 4 Hours Temp Pulse Resp BP Pulse Ox 12/03/17 05:56 16 115/57 99 12/03/17 05:54 101 16 112/57 98 12/03/17 04:48 104 16 123/54 98 12/03/17 04:00 99.0 F 95 16 120/53 99 12/03/17 03:49 16 121/53 99 12/03/17 03:00 99 16 108/53 99 Ventilator Settings Ventilator Settings: Ventilator Settings, Last 8 Hours Ventilator Tidal Volume 400 Setting Ventilator Tidal Volume 400 Setting Ventilator Tidal Volume 400 Setting Ventilator Tidal Volume 400 Setting Ventilator Tidal Volume 400 Setting Ventilator Tidal Volume 400 Setting Ventilator Tidal Volume 400 Setting Ventilator Tidal Volume 400 Setting Ventilator Tidal Volume 400 Setting Ventilator Tidal Volume 400 Setting Ventilator Tidal Volume 400 Setting Ventilator Tidal Volume 400 Setting Ventilator Respiratory Rate 16 Setting Ventilator Respiratory Rate 16 Setting Ventilator Respiratory Rate 16 Setting Ventilator Respiratory Rate 16 Setting Ventilator Respiratory Rate 16 Setting Ventilator Respiratory Rate 16 Setting Ventilator Respiratory Rate 16 Setting Ventilator Respiratory Rate 16 Setting Ventilator Respiratory Rate 16 Setting Ventilator Respiratory Rate 16 Setting Ventilator Respiratory Rate 16 Setting Ventilator Respiratory Rate 16 Setting Actual Respiratory Rate 16 Actual Respiratory Rate 16 Actual Respiratory Rate 16 Actual Respiratory Rate 16 Actual Respiratory Rate 16 Actual Respiratory Rate 16 Actual Respiratory Rate 16 Actual Respiratory Rate 16 Actual Respiratory Rate 16 Actual Respiratory Rate 16 Actual Respiratory Rate 16 Positive End Expiratory 5 Pressure Positive End Expiratory 5 Pressure Positive End Expiratory 5 Pressure Positive End Expiratory 5 Pressure Positive End Expiratory 5 Pressure Positive End Expiratory 5 Pressure Positive End Expiratory 5 Pressure Positive End Expiratory 5 Pressure Positive End Expiratory 5 Pressure Positive End Expiratory 5 Pressure Positive End Expiratory 5 Pressure Positive End Expiratory 5 Pressure Peak Inspiratory Airway 23 Pressure Peak Inspiratory Airway 25 Pressure Peak Inspiratory Airway 25 Pressure Peak Inspiratory Airway 24 Pressure Peak Inspiratory Airway 24 Pressure Peak Inspiratory Airway 25 Pressure Peak Inspiratory Airway 25 Pressure Peak Inspiratory Airway 25 Pressure Peak Inspiratory Airway 25 Pressure Peak Inspiratory Airway 28 Pressure Peak Inspiratory Airway 28 Pressure Results - Laboratory Findings CBC and BMP: 12/03/17 03:00 12/03/17 03:00 ABG ABG pH 7.32 pH Units (7.32-7.45) 12/03/17 04:28 ABG pCO2 43 mmHg (35-45) 12/03/17 04:28 ABG pO2 83 mmHg (85-104) L 12/03/17 04:28 ABG O2 Saturation 95 % (95-98) 12/03/17 04:28 PT/INR, D-dimer PT 12.0 Seconds (9.4-12.1) 12/02/17 07:20 Abnormal lab findings: Abnormal lab results WBC 18.0 K/mcL (4.3-11.1) H 12/03/17 03:00 RBC 2.81 M/mcL (3.82-4.97) L 12/03/17 03:00 Hgb 9.0 g/dL (11.5-15.4) L D 12/03/17 03:00 Hct 26.8 % (35.3-44.9) L 12/03/17 03:00 Neutrophils # 15.5 K/mcL (1.6-8.9) H 12/03/17 03:00 ABG pO2 83 mmHg (85-104) L 12/03/17 04:28 ABG Base Excess -4 mEq/L (-2 to 3) L 12/03/17 04:28 Chloride 114 mEq/L (98-107) H 12/03/17 03:00 Carbon Dioxide 21 mEq/L (23-29) L 12/03/17 03:00 BUN 28 mg/dL (8-23) H 12/03/17 03:00 Est GFR (Non-Af Amer) 55 (> 60) L 12/03/17 03:00 BUN/Creatinine Ratio 28 (6-26) H 12/03/17 03:00 Glucose 150 mg/dL (70-105) H 12/03/17 03:00 POC Glucose 111 mg/dL (70-99) H 12/03/17 00:01 Calculated Osmolality 304 (280-300) H 12/03/17 03:00 Troponin I 0.66 ng/mL (< 0.04) H* 12/03/17 03:00 Serum Total Protein 5.4 g/dL (6.4-8.9) L 12/02/17 16:39 Globulin 1.8 g/dL (2.4-3.5) L 12/02/17 16:39 - Microbiology Findings Microbiology Findings: Microbiology, Last 48 Hours 12/02/17 17:10 Blood Culture - Preliminary Peripheral Venipuncture Culture is incubating and being continuously monitored for growth. Final report to follow. 12/02/17 17:14 Blood Culture - Preliminary Peripheral Venipuncture Culture is incubating and being continuously monitored for growth. Final report to follow. - Clinical Findings Intake & Output: Intake & Output 12/02/17 12/02/17 12/03/17 15:59 23:59 07:59 Intake Total 0 / 0 612 / 612 190 / 190 Output Total 110 / 110 550 / 550 125 / 125 Balance -110 / -110 62 / 62 65 / 65 - Attending Attestation I examined this patient and my medical decision-making was reviewed with the Resident Physician. I agree with the documented findings, disposition and treatment plan as described except to the extent set forth below. We independently had [id number] contact with the patient I spent 33min of Critical Care time with this patient. It involved decision making of high complexity to assess, manipulate, and support vital organ system failure and/or to prevent further life threatening deterioration of the patient' s condition. The time involved in the performance of separately reportable procedures was not counted toward critical care time. Patient seen and examined at bedside Labs, radiology, chart personally reviewed. . 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: Patient is sedated on the vent there is no neurological impairment prior to intubation Pulm: History of COPD and obstructive sleep apnea she is intubated for surgical procedure use low tidal volume ventilatory strategy because high risk for development of ARDS ABG shows acceptable gas exchange continue bronchodilators no evidence of COPD exacerbation at this time Cards: Distributive shock secondary to sepsis elevated lactate which has improved after volume resuscitation will continue to trend lactate check troponin and ECG wean vasopressor to goal map 60-65 GI: GI prophylaxis given; she is postop day 0 status post exploratory laparotomy for small bowel obstruction general surgery managing postoperative care Nutrition: Nothing by mouth for now Renal: UOP Monitored, Cont to Trend sCr and monitor Electrolytes. ID: Continue Zosyn for intra-abdominal infectious process blood cultures have been obtained de-escalate based upon culture and sensitivities Heme/Onc: DVT prophylaxis given Endo: Glucose Monitored Integ/MSK: Skin Care per routine ICU Nursing Protocol to prevent ulcers. Lines: All lines examined without evidence of infection : Dispo: Remain in ICU for critical illness CODE: Full updated in the ICU waiting room
[2017-12-02] MEDS: FentaNYL (PF) 1,000 MCG in 0.9 % Sodium Chloride 80 ML IVC SCH (19:47)
[2017-12-02] MEDS: Norepinephrine 4 MG in D5% in Water 250 ML IVC SCH ×2 (19:47→21:00)
[2017-12-02] MEDS ORDERED: Artificial Tears SOLN 15 ML BOTTLE BOTH EYES SCH (20:00)
[2017-12-02] MEDS: Chlorhexidine Rinse 15 ML MOUTHWASH MM SCH (20:04)
[2017-12-02] MEDS: Artificial Tears SOLN 15 ML BOTTLE BOTH EYES SCH ×2 (20:05→23:52)
[2017-12-02] MEDS ORDERED: Chlorhexidine Rinse 15 ML MOUTHWASH MM SCH (21:00)
[2017-12-02] MEDS: Ipratropium/Albuterol Neb 3 ML IH SCH (22:24)
--- NOTE | 2017-12-02 22:43 | Sepsis Event Note ---
<Fady Grant - Last Filed: 12/02/17 22:41> Sepsis Reassessment Note - Evaluation Sepsis Screen: Sepsis Risk Current Stage of Sepsis: severe sepsis Possible Source of Sepsis: GI tract/intra-abdominal - Focused Exam Date of Encounter: 12/02/17 Time of Encounter: 22:00 Vital Signs: Vital Signs Temp Pulse Resp BP Pulse Ox 12/02/17 22:24 26 96 12/02/17 21:55 61 16 99/50 98 12/02/17 21:00 60 16 99/50 98 12/02/17 19:54 96.9 F L 58 16 104/58 97 12/02/17 19:46 16 93/52 97 12/02/17 19:00 96.6 F L 72 16 101/55 98 12/02/17 18:48 96.6 F L 70 16 118/63 99 12/02/17 17:59 96.7 F L 80 16 129/73 100 12/02/17 17:35 78 14 138/80 100 12/02/17 17:30 96.9 F L 81 14 120/72 100 12/02/17 17:20 65 14 116/62 99 12/02/17 17:05 75 14 134/75 99 12/02/17 16:57 16 100 12/02/17 16:50 96.9 F L 82 14 120/68 100 12/02/17 12:45 97.5 F L 115 17 104/72 97 12/02/17 11:30 96.4 F L 118 16 88/69 98 Respiratory Exam: Present: decreased breath sounds (Equal breath sounds bilaterally), patient mechanically (Ventilated). Absent: respiratory distress Cardiovascular Exam: Present: bradycardia Capillary Refill: > 2 seconds Peripheral Pulse Strength: 3+ normal Peripheral Pulse Location: Radial Skin Exam: pale <Martin Pacheco - Last Filed: 12/03/17 06:47> Sepsis Reassessment Note - Focused Exam Vital Signs: Vital Signs Temp Pulse Resp BP Pulse Ox 12/03/17 05:56 16 115/57 99 12/03/17 05:54 101 16 112/57 98 12/03/17 04:48 104 16 123/54 98 12/03/17 04:00 99.0 F 95 16 120/53 99 12/03/17 03:49 16 121/53 99 12/03/17 03:00 99 16 108/53 99 12/03/17 01:53 103 16 116/54 99 12/03/17 01:00 94 16 122/57 99 12/03/17 00:24 16 111/55 98 12/02/17 23:58 96.9 F L 60 16 118/55 99 12/02/17 23:00 61 16 115/54 99 12/02/17 22:24 26 96 12/02/17 21:55 61 16 99/50 98 12/02/17 21:00 60 16 99/50 98 12/02/17 19:54 96.9 F L 58 16 104/58 97 12/02/17 19:46 16 93/52 97 12/02/17 19:00 96.6 F L 72 16 101/55 98 12/02/17 18:48 96.6 F L 70 16 118/63 99 - Attending Attestation I was not physically present present when the laborer powerhouse documented the above assessment but I agree with his documentation based upon my earlier assessment of the patient and discussion with him over the phone
[2017-12-03] MEDS: FentaNYL (PF) 1,000 MCG in 0.9 % Sodium Chloride 80 ML IVC SCH (00:18)
[2017-12-03] MEDS: Piperacillin/Tazobactam 3.375 GM in 0.9 % Sodium Chloride Mini Bag 100 ML IVPB SCH ×3 (01:10→18:40)
[2017-12-03] MEDS: Artificial Tears SOLN 15 ML BOTTLE BOTH EYES SCH ×6 (03:10→23:10)
[2017-12-03 03:11] LABS: Basophils % 0.1 %; Hematocrit 26.8 % (35.3-44.9); Immature Granulocytes % 0.4 % (0-4); Lymphocytes % 6.9 %; Mean Corpuscular HGB Conc 33.6 g/dL (31.6-35.5); Mean Corpuscular Volume 95.4 fL (83.0-100.0); Mean Platelet Volume 11.8 fL (9.4-12.4); Monocytes # 1.2 K/mcL (0.0-1.3); Monocytes % 6.4 %; Neutrophils # 15.5 K/mcL (1.6-8.9); Platelet Count 177 K/mcL (140-400); Red Blood Count 2.81 M/mcL (3.82-4.97); Red Cell Distribution Width 13.1 % (11.5-14.5); Segmented Neutrophils % 86.2 %
[2017-12-03 03:28] LABS: BUN/Creatinine Ratio 28 (6-26); Blood Urea Nitrogen 28 mg/dL (8-23); Carbon Dioxide 21 mEq/L (23-29); Chloride 114 mEq/L (98-107); Glucose 150 mg/dL (70-105); Magnesium 1.9 mg/dL (1.6-2.6); Osmolality,Calculated 304 (280-300); Potassium 3.8 mEq/L (3.5-5.1); Sodium 143 mEq/L (136-145); eGFR For Non-African Americans 55 (> 60)
[2017-12-03 03:31] LABS: Lymphocytes # 1.2 K/mcL (0.6-4.6)
[2017-12-03 03:37] LABS: Troponin I 0.66 ng/mL (< 0.04)
[2017-12-03] MEDS: Ipratropium/Albuterol Neb 3 ML IH SCH ×4 (03:49→21:29)
[2017-12-03 04:11] LABS: Platelet Estimate Normal (Normal)
[2017-12-03 04:31] LABS: ABG Base Excess -4 mEq/L (-2 to 3); ABG HCO3 22 mEq/L (21-27); ABG Oxygen Saturation 95 % (95-98); ABG PCO2 43 mmHg (35-45); ABG PH 7.32 pH Units (7.32-7.45); ABG PO2 83 mmHg (85-104); ABG TCO2 24 mEq/L (20-26); Blood Gas Modality ASSIST CONTROL; Blood Gas PEEP 5 cm H2O; Blood Gas Respiration Rate 16; Blood Gas VT 400 cc
[2017-12-03] MEDS: Pantoprazole 40 MG VIAL IVP SCH (07:41)
[2017-12-03] MEDS: Chlorhexidine Rinse 15 ML MOUTHWASH MM SCH ×2 (07:41→19:52)
--- NOTE | 2017-12-03 07:48 | Pulmonology Progress Note ---
<TaraMartin W - Last Filed: 12/03/17 09:19> Date of Encounter: 12/03/17 Objective PUL Vital signs: Last Vital Signs Temp 97.4 F L 12/03/17 08:30 Pulse 96 12/03/17 08:59 Resp 15 12/03/17 08:59 BP 144/66 12/03/17 08:59 Pulse Ox 100 12/03/17 08:59 Ventilator Settings Ventilator Settings: Ventilator Settings, Last 8 Hours Ventilator Tidal Volume 400 Setting Ventilator Tidal Volume 400 Setting Ventilator Tidal Volume 400 Setting Ventilator Tidal Volume 400 Setting Ventilator Tidal Volume 400 Setting Ventilator Tidal Volume 400 Setting Ventilator Tidal Volume 400 Setting Ventilator Tidal Volume 400 Setting Ventilator Respiratory Rate 16 Setting Ventilator Respiratory Rate 16 Setting Ventilator Respiratory Rate 16 Setting Ventilator Respiratory Rate 16 Setting Ventilator Respiratory Rate 16 Setting Ventilator Respiratory Rate 16 Setting Ventilator Respiratory Rate 16 Setting Ventilator Respiratory Rate 16 Setting Actual Respiratory Rate 18 Actual Respiratory Rate 9 Actual Respiratory Rate 16 Actual Respiratory Rate 16 Actual Respiratory Rate 16 Actual Respiratory Rate 16 Actual Respiratory Rate 16 Actual Respiratory Rate 16 Actual Respiratory Rate 16 Positive End Expiratory 5 Pressure Positive End Expiratory 5 Pressure Positive End Expiratory 5 Pressure Positive End Expiratory 5 Pressure Positive End Expiratory 5 Pressure Positive End Expiratory 5 Pressure Positive End Expiratory 5 Pressure Positive End Expiratory 5 Pressure Positive End Expiratory 5 Pressure Positive End Expiratory 5 Pressure Peak Inspiratory Airway 11 Pressure Peak Inspiratory Airway 10 Pressure Peak Inspiratory Airway 23 Pressure Peak Inspiratory Airway 25 Pressure Peak Inspiratory Airway 25 Pressure Peak Inspiratory Airway 24 Pressure Peak Inspiratory Airway 24 Pressure Peak Inspiratory Airway 25 Pressure Peak Inspiratory Airway 25 Pressure Results - Laboratory Findings CBC and BMP: 12/03/17 03:00 12/03/17 03:00 ABG ABG pH 7.32 pH Units (7.32-7.45) 12/03/17 04:28 ABG pCO2 43 mmHg (35-45) 12/03/17 04:28 ABG pO2 83 mmHg (85-104) L 12/03/17 04:28 ABG O2 Saturation 95 % (95-98) 12/03/17 04:28 PT/INR, D-dimer PT 12.0 Seconds (9.4-12.1) 12/02/17 07:20 Abnormal lab findings: Abnormal lab results WBC 18.0 K/mcL (4.3-11.1) H 12/03/17 03:00 RBC 2.81 M/mcL (3.82-4.97) L 12/03/17 03:00 Hgb 9.0 g/dL (11.5-15.4) L D 12/03/17 03:00 Hct 26.8 % (35.3-44.9) L 12/03/17 03:00 Neutrophils # 15.5 K/mcL (1.6-8.9) H 12/03/17 03:00 ABG pO2 83 mmHg (85-104) L 12/03/17 04:28 ABG Base Excess -4 mEq/L (-2 to 3) L 12/03/17 04:28 Chloride 114 mEq/L (98-107) H 12/03/17 03:00 Carbon Dioxide 21 mEq/L (23-29) L 12/03/17 03:00 BUN 28 mg/dL (8-23) H 12/03/17 03:00 Est GFR (Non-Af Amer) 55 (> 60) L 12/03/17 03:00 BUN/Creatinine Ratio 28 (6-26) H 12/03/17 03:00 Glucose 150 mg/dL (70-105) H 12/03/17 03:00 POC Glucose 111 mg/dL (70-99) H 12/03/17 00:01 Calculated Osmolality 304 (280-300) H 12/03/17 03:00 Troponin I 0.66 ng/mL (< 0.04) H* 12/03/17 03:00 Serum Total Protein 5.4 g/dL (6.4-8.9) L 12/02/17 16:39 Globulin 1.8 g/dL (2.4-3.5) L 12/02/17 16:39 - Microbiology Findings Microbiology Findings: Microbiology, Last 48 Hours 12/02/17 17:10 Blood Culture - Preliminary Peripheral Venipuncture Culture is incubating and being continuously monitored for growth. Final report to follow. 12/02/17 17:14 Blood Culture - Preliminary Peripheral Venipuncture Culture is incubating and being continuously monitored for growth. Final report to follow. - Clinical Findings Intake & Output: Intake & Output 12/02/17 12/03/17 12/03/17 23:59 07:59 15:59 Intake Total 612 / 612 374 / 374 Output Total 550 / 550 125 / 125 250 / 250 Balance 62 / 62 249 / 249 -250 / -250 Consult Discharge Plan - Plan Referrals: NONE,PCP [Primary Care Provider] - - Attending Attestation I examined this patient and my medical decision-making was reviewed with the Resident Physician. I agree with the documented findings, disposition and treatment plan as described except to the extent set forth below. We independently had [id number] contact with the patient Patient seen and examined at bedside Labs, radiology, chart personally reviewed. Management was reviewed during multidisciplinary critical care rounds. 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 We will start incentive spirometry and out of bed to chair Cards: Mild troponin elevation which is likely demand ischemia with some ECG changes indicative of ischemia progressive down trended formal echocardiogram pending think that the risk of full heparin in this situation versus the benefit is high and given postoperative status and I doubt that this reflects acute coronary syndrome given the presentation would start aspirin and beta lv however GI: She is postop day 1 status post exploratory laparotomy for ischemic bowel doing well general surgery is managing this GI prophylaxis was given likely this can be stopped today Nutrition: Nothing by mouth for now Renal: UOP Monitored, Cont to Trend sCr and monitor Electrolytes. ID: Treating with Zosyn for intra-abdominal infection plan a de-escalate based upon clinical course and microbiological sensitivities Heme/Onc: DVT prophylaxis given Endo: Glucose Monitored Integ/MSK: PTOT consult Skin Care per routine ICU Nursing Protocol to prevent ulcers. Lines: All lines examined without evidence of infection : Dispo: Remain in ICU today for monitoring I suspect that within the next 24 hours she can be transitioned back to med telemetry for ongoing care CODE:Full <Dea Dougherty E - Last Filed: 12/03/17 11:55> Date of Encounter: 12/03/17 Time of Encounter: 07:48 Assessment and Plan (1) Septic shock Current Visit: Yes Status: Resolved Patient originally met septic shock criteria, hypotension has resolved and no longer is in need of pressors, tachycardia has resolved, leukocytosis has decreased. Bowel necrosis was likely source of infection Blood cultures peding Continue Zosyn De-escalate based on culture (2) Ischemic necrosis of small bowel Current Visit: Yes Status: Acute Post-op day 1 post 150 cm small bowel resection dur to small bowel necrosis Continue postop pain control, PPI, and antiemetics NG tube in place on low intermittent suction General surgery following (3) Non-sustained ventricular tachycardia Current Visit: Yes Status: Acute Patient had multiple runs of Vtach on telemetry Troponins were treneded and decreased from 1.03 to 0.66 Cardiac monitoring Echo has been ordered (4) Elevated troponin Current Visit: Yes Status: Acute Elevated troponin in the setting of septic shock and abdominal surgery Initial EKG 12/02/17 6:09 revealed sinus tachycardia heart rate 116, flipped T waves V2 through V5 Most recent EKG 12/02/17 17:46 revealed sinus rhythm heart rate 71, no signs of ischemia Patient denies chest pain at this time, continue monitoring Echo ordered (5) HTN (hypertension) Current Visit: No Status: Chronic Hold antihypertensive meds secondary to hypotension on admission Continue close monitoring Qualifiers: Hypertension type: essential hypertension Qualified Code(s): I10 - Essential (primary) hypertension (6) Hyperlipidemia Current Visit: Yes Status: Chronic can resume home medications Qualifiers: Hyperlipidemia type: unspecified Qualified Code(s): E78.5 - Hyperlipidemia , unspecified (7) Obstructive sleep apnea Current Visit: Yes Status: Chronic resume CPAP at night (8) History of gastric bypass Current Visit: No Status: Chronic continue current therapy (9) DVT prophylaxis Current Visit: Yes Status: Acute EPCDs SQ Heparin 5000 units Q8 Subjective Principal diagnosis: ischemic necrosis of small bowel Interval history: Ms. Baltazar is a 72-year-old female with a past medical history of gastric sleeve, hypertension, hyperlipidemia, and VÍCTOR who was transferred from [facility] secondary to small bowel obstruction. History of present illness was obtained from the medical record after returning from surgery. Records from [facility] revealed vital signs HR 66, BP 182/83 RR 17, 100% RA and labs revealed WBC 17.9, normal lactic acid level, CRP, amylase, and lipase levels. CT abdomen pelvis revealed small bowel obstruction and pancreatic duct dilatation. She was evaluated by general surgery and underwent resection of 150 cm necrotic small bowel and transfer to ICU intubated. Patient required central line placement secondary to refractory hypotension/septic shock despite IV fluid resuscitation. WBC increased to 26.5, hemoglobin dropped from 16 to 11.2, and troponin level was 1.03. Patient had nonsustained ventricular tachycardia on telemetry. Initial EKG showed flipped T waves and repeat EKGs show no signs of ischemia. On further testing troponin decreased to 0.66, and WBC dropped to 18. She was extubated this morning and is doign well on Oxygen by [place]. She states she is feeling much better and her pain is minimal. NO longer on presser support, currently only on fentanyl. Objective PUL Vital signs: Last Vital Signs Temp 99.0 F 12/03/17 04:00 Pulse 96 12/03/17 07:00 Resp 18 12/03/17 07:40 BP 123/62 12/03/17 07:00 Pulse Ox 100 12/03/17 07:40 General appearance: no acute distress Eyes: nonicteric ENT: oropharynx moist Neck: no lymphadenopathy Effort: normal Auscultation: bilateral: clear Cardiovascular: regular rate and rhythm Gastrointestinal: absent bowel sounds, soft, non-tender Extremities: no cyanosis, no edema, pink and warm normal mental status Ventilator Settings Ventilator Settings: Ventilator Settings, Last 8 Hours Ventilator Tidal Volume 400 Setting Ventilator Tidal Volume 400 Setting Ventilator Tidal Volume 400 Setting Ventilator Tidal Volume 400 Setting Ventilator Tidal Volume 400 Setting Ventilator Tidal Volume 400 Setting Ventilator Tidal Volume 400 Setting Ventilator Tidal Volume 400 Setting Ventilator Tidal Volume 400 Setting Ventilator Tidal Volume 400 Setting Ventilator Tidal Volume 400 Setting Ventilator Respiratory Rate 16 Setting Ventilator Respiratory Rate 16 Setting Ventilator Respiratory Rate 16 Setting Ventilator Respiratory Rate 16 Setting Ventilator Respiratory Rate 16 Setting Ventilator Respiratory Rate 16 Setting Ventilator Respiratory Rate 16 Setting Ventilator Respiratory Rate 16 Setting Ventilator Respiratory Rate 16 Setting Ventilator Respiratory Rate 16 Setting Ventilator Respiratory Rate 16 Setting Actual Respiratory Rate 18 Actual Respiratory Rate 9 Actual Respiratory Rate 16 Actual Respiratory Rate 16 Actual Respiratory Rate 16 Actual Respiratory Rate 16 Actual Respiratory Rate 16 Actual Respiratory Rate 16 Actual Respiratory Rate 16 Actual Respiratory Rate 16 Actual Respiratory Rate 16 Actual Respiratory Rate 16 Positive End Expiratory 5 Pressure Positive End Expiratory 5 Pressure Positive End Expiratory 5 Pressure Positive End Expiratory 5 Pressure Positive End Expiratory 5 Pressure Positive End Expiratory 5 Pressure Positive End Expiratory 5 Pressure Positive End Expiratory 5 Pressure Positive End Expiratory 5 Pressure Positive End Expiratory 5 Pressure Positive End Expiratory 5 Pressure Positive End Expiratory 5 Pressure Positive End Expiratory 5 Pressure Peak Inspiratory Airway 11 Pressure Peak Inspiratory Airway 10 Pressure Peak Inspiratory Airway 23 Pressure Peak Inspiratory Airway 25 Pressure Peak Inspiratory Airway 25 Pressure Peak Inspiratory Airway 24 Pressure Peak Inspiratory Airway 24 Pressure Peak Inspiratory Airway 25 Pressure Peak Inspiratory Airway 25 Pressure Peak Inspiratory Airway 25 Pressure Peak Inspiratory Airway 25 Pressure Peak Inspiratory Airway 28 Pressure Results - Laboratory Findings CBC and BMP: 12/03/17 03:00 12/03/17 03:00 ABG ABG pH 7.32 pH Units (7.32-7.45) 12/03/17 04:28 ABG pCO2 43 mmHg (35-45) 12/03/17 04:28 ABG pO2 83 mmHg (85-104) L 12/03/17 04:28 ABG O2 Saturation 95 % (95-98) 12/03/17 04:28 PT/INR, D-dimer PT 12.0 Seconds (9.4-12.1) 12/02/17 07:20 Abnormal lab findings: Abnormal lab results WBC 18.0 K/mcL (4.3-11.1) H 12/03/17 03:00 RBC 2.81 M/mcL (3.82-4.97) L 12/03/17 03:00 Hgb 9.0 g/dL (11.5-15.4) L D 12/03/17 03:00 Hct 26.8 % (35.3-44.9) L 12/03/17 03:00 Neutrophils # 15.5 K/mcL (1.6-8.9) H 12/03/17 03:00 ABG pO2 83 mmHg (85-104) L 12/03/17 04:28 ABG Base Excess -4 mEq/L (-2 to 3) L 12/03/17 04:28 Chloride 114 mEq/L (98-107) H 12/03/17 03:00 Carbon Dioxide 21 mEq/L (23-29) L 12/03/17 03:00 BUN 28 mg/dL (8-23) H 12/03/17 03:00 Est GFR (Non-Af Amer) 55 (> 60) L 12/03/17 03:00 BUN/Creatinine Ratio 28 (6-26) H 12/03/17 03:00 Glucose 150 mg/dL (70-105) H 12/03/17 03:00 POC Glucose 111 mg/dL (70-99) H 12/03/17 00:01 Calculated Osmolality 304 (280-300) H 12/03/17 03:00 Troponin I 0.66 ng/mL (< 0.04) H* 12/03/17 03:00 Serum Total Protein 5.4 g/dL (6.4-8.9) L 12/02/17 16:39 Globulin 1.8 g/dL (2.4-3.5) L 12/02/17 16:39 - Microbiology Findings Microbiology Findings: Microbiology, Last 48 Hours 12/02/17 17:10 Blood Culture - Preliminary Peripheral Venipuncture Culture is incubating and being continuously monitored for growth. Final report to follow. 12/02/17 17:14 Blood Culture - Preliminary Peripheral Venipuncture Culture is incubating and being continuously monitored for growth. Final report to follow. - Clinical Findings Intake & Output: Intake & Output 12/02/17 12/02/17 12/03/17 15:59 23:59 07:59 Intake Total 0 / 0 612 / 612 374 / 374 Output Total 110 / 110 550 / 550 125 / 125 Balance -110 / -110 62 / 62 249 / 249
--- NOTE | 2017-12-03 08:01 | General Surgery Progress Note ---
<Los Mccall R - Last Filed: 12/03/17 08:03> Date of Encounter: 12/03/17 Time of Encounter: 07:40 - Assessment and Plan (1) Small bowel obstruction Current Visit: Yes Status: Acute POD #1 s/p exploratory laparotomy, 150 cm small bowel resection with Dr. Laureano Patient remains intubated with CCU team in the process of extubation at time of visit. Patient is alert and noting significant pain relief since surgery Plan: Extubation per ccu team Continue ccu cares NPO NG to LIWS Consult dietary to follow, pt may develop shortgut Patient may require manager intermediate B12 supplementation and/or lamotil Consult PT/OT Comfort care and pain management Daily wound care prn antiemetic PPI prophylaxis (2) Septic shock Current Visit: Yes Status: Acute Patient is off of pressors, improvement in vital signs and WBC down to 18 today Continue ccu cares Continue antibiotics- currently Zosyn Blood cultures pending Surgical path pending (3) Endotracheally intubated Current Visit: Yes Status: Acute Extubation planned per ccu team this am (4) Ischemic necrosis of small bowel Current Visit: Yes Status: Acute s/p small bowel resection. continue care as above (5) DVT prophylaxis Current Visit: Yes Status: Acute EPCDs Subjective Patient reports: pain is less, no flatus, no bowel movement, afebrile, other Narrative: Intubated, patient expressing desire for extubation Objective Vital Signs - Last 8 Hours Temp Pulse Resp BP Pulse Ox 12/03/17 07:48 18 98 12/03/17 07:45 98 12/03/17 07:40 18 100 12/03/17 07:00 96 9 123/62 99 12/03/17 05:56 16 115/57 99 12/03/17 05:54 101 16 112/57 98 12/03/17 04:48 104 16 123/54 98 12/03/17 04:00 99.0 F 95 16 120/53 99 12/03/17 03:49 16 121/53 99 12/03/17 03:00 99 16 108/53 99 12/03/17 01:53 103 16 116/54 99 12/03/17 01:00 94 16 122/57 99 12/03/17 00:24 16 111/55 98 Intake and Output 09/12/02/17 12/03/17 15:59 23:59 07:59 Intake Total 0 / 0 612 / 612 374 / 374 Output Total 110 / 110 550 / 550 125 / 125 Balance -110 / -110 62 / 62 249 / 249 Intake: IV Fluids 612 / 612 374 / 374 ALBURX 5% 12.5 gm In 250 ml @ 500 / 500 60 mls/hr IVC .Q4H10M [facility] Rx#: [id number] PRECEDEX Premix 400 mcg In 100 2 / 2 14 / 14 ml @ 0.2 MCG/KG/HR 3.36 mls/hr IVC .Q24H [facility] Rx#:[id number] FentaNYL (PF) 1,000 MCG In 0.9 10 / 10 175 / 175 % Sodium Chloride 80 ML @ 50 MCG/HR 5 mls/hr IVC CONT [facility] Rx #:[id number] Diprivan 1,000 mg In 100 ml @ 5 85 / 85 MCG/KG/MIN 2.016 mls/hr IVC . Q24H [facility] Rx#:[id number] Zosyn 3.375 GM In 0.9 % Sodium 100 / 100 100 / 100 Chloride (Mini-Bag +) 100 ML @ 25 mls/hr IVPB Q8H [facility] Rx#: [id number] Oral 0 / 0 0 / 0 0 / 0 Output: Gastric Tube Lavage Amount 100 / 100 L nare 100 / 100 Estimated Blood Loss 50 / 50 Urine Amount (Catheter) 100 / 100 Catheter 400 / 400 125 / 125 Gastric Drainage 10 / 10 0 / 0 0 / 0 L nare 10 / 10 Other: # Voids 1 # Bowel Movements 0 Blood Glucose* 111 - General physical appearance well developed, well nourished, other (Awake, alert, intubated) - Eyes PERRL, normal ocular movement - ENT normal mucosa, atraumatic, normocephalic, Other (ET tube in place, set to CPAP) - Neck Neck exam: trachea midline, no venous distension - Respiratory normal expansion - Cardiovascular Cardiovascular exam: Present: RRR - Abdomen Abdomen: Present: soft, tender (expected post surgical tenderness). Absent: bowel sounds present, distended, guarding - Incision Incision: Present: clean and dry, intact - Integumentary no rash - Neurologic CN 2-12 grossly intact (Incompletely assessed due to ET tube) - Musculoskeletal normal posture - Psychiatric other (Incompletely assessed for ET tube) - Labs 12/03/17 03:00 12/03/17 03:00 Diabetes panel 12/02/17 12/03/17 Range/Units 16:39 03:00 Sodium 143 143 (136-145) mEq/L Potassium 4.1 3.8 (3.5-5.1) mEq/L Chloride 116 H 114 H (98-107) mEq/L Carbon Dioxide 20 L 21 L (23-29) mEq/L BUN 28 H 28 H (8-23) mg/dL Creatinine 1.03 0.99 (0.60-1.20) mg/dL Glucose 173 H 150 H (70-105) mg/dL Calcium 8.4 L 9.0 (8.6-10.3) mg/dL AST 15 (13-39) Units/L ALT 9 (7-52) Units/L Alkaline Phosphatase 76 (34-104) Units/L Albumin 3.6 (3.5-5.7) g/dL Thyroid panel 12/03/17 Range/Units 03:00 TSH 0.921 (0.340-5.600) mcIU/mL Calcium panel 12/02/17 12/03/17 Range/Units 16:39 03:00 Calcium 8.4 L 9.0 (8.6-10.3) mg/dL Phosphorus 3.0 (2.7-4.5) mg/dL Albumin 3.6 (3.5-5.7) g/dL Pituitary panel 12/02/17 12/03/17 12/03/17 Range/Units 16:39 03:00 03:00 Sodium 143 143 (136-145) mEq/L Potassium 4.1 3.8 (3.5-5.1) mEq/L Chloride 116 H 114 H (98-107) mEq/L Carbon Dioxide 20 L 21 L (23-29) mEq/L BUN 28 H 28 H (8-23) mg/dL Creatinine 1.03 0.99 (0.60-1.20) mg/dL Glucose 173 H 150 H (70-105) mg/dL Calcium 8.4 L 9.0 (8.6-10.3) mg/dL TSH 0.921 (0.340-5.600) mcIU/mL Adrenal panel 12/02/17 12/03/17 Range/Units 16:39 03:00 Sodium 143 143 (136-145) mEq/L Potassium 4.1 3.8 (3.5-5.1) mEq/L Chloride 116 H 114 H (98-107) mEq/L Carbon Dioxide 20 L 21 L (23-29) mEq/L BUN 28 H 28 H (8-23) mg/dL Creatinine 1.03 0.99 (0.60-1.20) mg/dL Glucose 173 H 150 H (70-105) mg/dL Calcium 8.4 L 9.0 (8.6-10.3) mg/dL Total Bilirubin 0.3 (0.3-1.0) mg/dL AST 15 (13-39) Units/L ALT 9 (7-52) Units/L Alkaline Phosphatase 76 (34-104) Units/L Albumin 3.6 (3.5-5.7) g/dL Consult Discharge Plan - Plan Referrals: NONE,PCP [Primary Care Provider] - <Prem Laureano - Last Filed: 12/03/17 14:55> Date of Encounter: 12/03/17 Objective Vital Signs - Last 8 Hours Temp Pulse Resp BP Pulse Ox 12/03/17 12:55 76 16 137/69 96 12/03/17 12:00 98.4 F 12/03/17 11:00 98 14 147/63 100 12/03/17 10:00 100 14 140/62 100 12/03/17 09:50 18 99 12/03/17 08:59 96 15 144/66 100 12/03/17 08:30 97.4 F L 12/03/17 08:00 100 16 132/60 99 12/03/17 07:48 18 98 12/03/17 07:45 98 12/03/17 07:40 18 100 12/03/17 07:00 96 9 123/62 99 Intake and Output 12/02/17 12/03/17 12/03/17 23:59 07:59 15:59 Intake Total 714 / 714 394 / 394 117 / 117 Output Total 550 / 550 125 / 125 400 / 400 Balance 164 / 164 269 / 269 -283 / -283 Intake: IV Fluids 714 / 714 394 / 394 117 / 117 ALBURX 5% 12.5 gm In 250 ml @ 500 / 500 60 mls/hr IVC .Q4H10M [facility] Rx#: [id number] PRECEDEX Premix 400 mcg In 100 2 / 2 14 / 14 ml @ 0.2 MCG/KG/HR 3.36 mls/hr IVC .Q24H [facility] Rx#:[id number] FentaNYL (PF) 1,000 MCG In 0.9 10 / 10 175 / 175 15 / 15 % Sodium Chloride 80 ML @ 50 MCG/HR 5 mls/hr IVC CONT [facility] Rx #:[id number] Levophed 4 MG In Dextrose 5% 20 / 20 250 ML @ 5 MCG/MIN 19.05 mls/hr IVC CONT [facility] Rx#:[id number] Diprivan 1,000 mg In 100 ml @ 5 85 / 85 0 / 0 MCG/KG/MIN 2.016 mls/hr IVC . Q24H [facility] Rx#:[id number] Magnesium Sulfate 1 GM In 0.9 % 102 / 102 Sodium Chloride 100 ML @ 100 mls/hr IVPB ONCE [facility] Rx#: [id number] Zosyn 3.375 GM In 0.9 % Sodium 100 / 100 100 / 100 Chloride (Mini-Bag +) 100 ML @ 25 mls/hr IVPB Q8H [facility] Rx#: [id number] Oral 0 / 0 0 / 0 Output: Estimated Blood Loss 50 / 50 Urine Amount (Catheter) 100 / 100 Catheter 400 / 400 125 / 125 400 / 400 Gastric Drainage 0 / 0 0 / 0 Other: Blood Glucose* 111 112 - Labs 12/03/17 03:00 12/03/17 03:00 Diabetes panel 12/02/17 12/03/17 12/03/17 Range/Units 16:39 03:00 09:03 Sodium 143 143 (136-145) mEq/L Potassium 4.1 3.8 (3.5-5.1) mEq/L Chloride 116 H 114 H (98-107) mEq/L Carbon Dioxide 20 L 21 L (23-29) mEq/L BUN 28 H 28 H (8-23) mg/dL Creatinine 1.03 0.99 (0.60-1.20) mg/dL Glucose 173 H 150 H (70-105) mg/dL Calcium 8.4 L 9.0 (8.6-10.3) mg/dL AST 15 24 (13-39) Units/L ALT 9 9 (7-52) Units/L Alkaline Phosphatase 76 61 (34-104) Units/L Albumin 3.6 3.7 (3.5-5.7) g/dL Thyroid panel 12/03/17 Range/Units 03:00 TSH 0.921 (0.340-5.600) mcIU/mL Calcium panel 12/02/17 12/03/17 12/03/17 Range/Units 16:39 03:00 09:03 Calcium 8.4 L 9.0 (8.6-10.3) mg/dL Phosphorus 3.0 (2.7-4.5) mg/dL Albumin 3.6 3.7 (3.5-5.7) g/dL Pituitary panel 12/02/17 12/03/17 12/03/17 Range/Units 16:39 03:00 03:00 Sodium 143 143 (136-145) mEq/L Potassium 4.1 3.8 (3.5-5.1) mEq/L Chloride 116 H 114 H (98-107) mEq/L Carbon Dioxide 20 L 21 L (23-29) mEq/L BUN 28 H 28 H (8-23) mg/dL Creatinine 1.03 0.99 (0.60-1.20) mg/dL Glucose 173 H 150 H (70-105) mg/dL Calcium 8.4 L 9.0 (8.6-10.3) mg/dL TSH 0.921 (0.340-5.600) mcIU/mL Adrenal panel 12/02/17 12/03/17 12/03/17 Range/Units 16:39 03:00 09:03 Sodium 143 143 (136-145) mEq/L Potassium 4.1 3.8 (3.5-5.1) mEq/L Chloride 116 H 114 H (98-107) mEq/L Carbon Dioxide 20 L 21 L (23-29) mEq/L BUN 28 H 28 H (8-23) mg/dL Creatinine 1.03 0.99 (0.60-1.20) mg/dL Glucose 173 H 150 H (70-105) mg/dL Calcium 8.4 L 9.0 (8.6-10.3) mg/dL Total Bilirubin 0.3 0.3 (0.3-1.0) mg/dL AST 15 24 (13-39) Units/L ALT 9 9 (7-52) Units/L Alkaline Phosphatase 76 61 (34-104) Units/L Albumin 3.6 3.7 (3.5-5.7) g/dL - Attending Attestation I examined this patient and my medical decision-making was reviewed with the Resident Physician. I agree with the documented findings, disposition and treatment plan as described except to the extent set forth below. The patient is seen and evaluated on morning rounds with the clinical nurse practitioner and the resident. The patient has had complete resolution of her preoperative pain syndrome. She is no longer on pressor agents. She is sitting comfortably in the chair. I am very pleased with her overall clinical course. Prem Laureano MD FACS
[2017-12-03 10:46] LABS: Albumin 3.7 g/dL (3.5-5.7); Albumin/Globulin Ratio 2.1 (1.1-2.2); Bilirubin,Direct 0.1 mg/dL (0.0-0.2); Bilirubin,Indirect 0.2 mg/dL (0.0-1.2); Bilirubin,Total 0.3 mg/dL (0.3-1.0); Globulin 1.8 g/dL (2.4-3.5); Total Protein 5.5 g/dL (6.4-8.9)
[2017-12-03] MEDS ORDERED: *HR* HYDROmorphone 20 MG/20 ML PCA IVC PRN (11:37)
[2017-12-03] MEDS ORDERED: Ringers Solution, Lactated 1,000 ML IVC SCH (12:15)
[2017-12-03] MEDS ORDERED: Ringers Solution, Lactated 1,000 ML ONE (12:23)
[2017-12-03] MEDS: *HR* Heparin 5,000 UNIT/ML VIAL SQ SCH ×2 (12:31→23:02)
[2017-12-03] MEDS: *HR* Metoprolol 5 MG/5 ML VIAL IVP SCH ×3 (12:32→23:03)
--- NOTE | 2017-12-03 13:38 | Gastroenterology Consult Note ---
<Tiny Arndtn Jie - Last Filed: 12/03/17 13:36> Date of Encounter: 12/03/17 Time of Encounter: 10:00 - Assessment and plan (1) Pancreatic duct dilated Current Visit: Yes Status: Acute Assessment and plan: Pt is much improved following small bowel resection. Will plan for MRCP when pt is more stable. (2) Small bowel obstruction Current Visit: Yes Status: Acute Assessment and plan: s/p resection (3) Sepsis Current Visit: Yes Status: Acute Assessment and plan: pt is improving - Time Spent With Patient Total time spent is greater than 50% in coordination of care (as documented) at patient's floor/unit and/or counseling patient: GI History of Present Illness - Data of Consult Patient: new to practice Consult date: 12/03/17 Requesting Physician: Elham Arita MD - Consult Narrative Reason for consult: dilated pd History of present illness: Ms. BALTAZAR is a 72 year old female with a hx gastric sleeve 9 months ago. She presented to [place] ED for abdominal pain nausea and vomiting. She was found to have a closed loop small bowel obstruction and is status post small bowel resection. She was extubated this morning. She has been treated for sepsis. She states pain is much improved this morning. She denies nausea or vomiting. She has NGT. CT abdomen also pancreatic duct dilatation therefore GI was consulted. Past Med Surg Social Fam HX - Past Medical History Medical history: hyperlipidemia, hypertension Additional medical history: VÍCTOR - Past Surgical History Surgical History: hysterectomy Additional surgical history: Gastric sleeve- Feb 2017 - Social History Smoking Status: Never smoker Smokeless Tobacco Status: No Alcohol use: none Drug use: none - Family History Mother Living Status: Hx Family Cardiac Disorders: No Hx Family Respiratory Disorders: No Hx Family Cancer: No Hx Family GI Disorders: No Hx Family Genitourinary Disorders: No Hx Family Endocrine Disorder: No Hx Family Musculoskeletal Disorders: No Hx Family Neuromuscular Disorders: No Hx Family Neurologic Disorders: No Hx Family HEENT Disorders: No Hx Family Autoimmune Disorders: No Hx Family Reproductive Disorders: No Hx Family Psychosocial Disorders: No Hx Family Medical Disorders: No Father Living Status: Hx Family Cardiac Disorders: Yes Hx Family Respiratory Disorders: No Hx Family Cancer: No Hx Family GI Disorders: No Hx Family Genitourinary Disorders: No Hx Family Endocrine Disorder: No Hx Family Musculoskeletal Disorders: No Hx Family Neuromuscular Disorders: No Hx Family Neurologic Disorders: No Hx Family HEENT Disorders: No Hx Family Autoimmune Disorders: No Hx Family Reproductive Disorders: No Hx Family Psychosocial Disorders: No Hx Family Medical Disorders: No Review of Systems: GI: as per [facility] GENERAL: denies fever, has some chills EYES: denies yellow discoloration ENT: denies pain with swallowing or difficulty swallowing CARDIO: denies chest pain, palpitations RESP: No Shortness of breath with exertion : denies change in color of urine NEURO: denies any weakness HEME: Denies any bruising MS: denies joint pain, joint swelling or back pain. DERM: denies rash or itching PSYCH: Denies history of anxiety or depression - Constitutional Vitals: Temp Pulse Resp BP Pulse Ox 98.4 F 76 16 137/69 96 12/03/17 12:00 12/03/17 12:55 12/03/17 12:55 12/03/17 12:55 12/03/17 12:55 Exam: CONSTITUTIONAL:~alert, no acute distress.~HEAD:~normocephalic.~EYES:~no jaundice.~NECK:~no obvious swelling.~HEART:~regular rate and rhythm, no murmurs. ~LUNGS:~bilateral fiar air entry.~ABDOMEN:~non distended, soft, non tender, no masses palpable, no organomegaly, large midline incision with dressing no drainage noted.~RECTAL EXAM:~Deferred.~EXTREMITIES:~no clubbing, cyanosis or edema.~SKIN:~pallor noted, no stigmata of chronic liver disease.~NEUROLOGIC:~no obvious focal defect.~~~~ Results - Labs CBC & Chem 7: 12/03/17 03:00 12/03/17 03:00 Labs: Last Result Calcium 9.0 mg/dL (8.6-10.3) 12/03/17 03:00 Troponin I 0.66 ng/mL (< 0.04) H* 12/03/17 03:00 Entire Visit Hgb 9.0 g/dL (11.5-15.4) L D 12/03/17 03:00 Hct 26.8 % (35.3-44.9) L 12/03/17 03:00 PT 12.0 Seconds (9.4-12.1) 12/02/17 07:20 Total Bilirubin 0.3 mg/dL (0.3-1.0) 12/03/17 09:03 AST 24 Units/L (13-39) 12/03/17 09:03 ALT 9 Units/L (7-52) 12/03/17 09:03 - ABG ABG results: ABG ABG pH 7.32 pH Units (7.32-7.45) 12/03/17 04:28 ABG pCO2 43 mmHg (35-45) 12/03/17 04:28 ABG pO2 83 mmHg (85-104) L 12/03/17 04:28 ABG O2 Saturation 95 % (95-98) 12/03/17 04:28 PT/INR, D-dimer PT 12.0 Seconds (9.4-12.1) 12/02/17 07:20 - Impressions Impressions Chest X-Ray 12/02/17 16:55 IMPRESSION: Endotracheal and nasogastric tube placement. Small pleural effusions. Mild pulmonary edema. D/ / Mannie Novak MD / Mannie Novak MD Interpreting Provider: Mannie Novak MD Echocardiogram 12/03/17 07:05 Impressions: LVEF 55-60%. Normal LV chamber size, wall thickness and function. Normal right ventricular structure and function. Mild aortic regurgitation. Unable to estimate pulmonary artery pressure due to lack of TR jet and IVC not seen, likely normal. Left Ventricular Wall Motion: Rest Echo Findings All wall segments showed normal motion. Findings: Study Quality * Technically adequate exam. ECG Findings * Normal sinus rhythm. Left Ventricle * LVEF 55-60%. * Normal LV chamber size, wall thickness and function. * Normal left ventricular diastolic function. Right Ventricle * Normal right ventricular structure and function. Left Atrium * Normal left atrial size. Right Atrium * Normal right atrial size. Interatrial Septum * Interatrial septum not well evaluated. Aortic Valve * Mildly calcified aortic valve leaflets. * Mild aortic regurgitation. * No aortic stenosis. Mitral Valve * Normal mitral valve structure and function. * No mitral regurgitation. Tricuspid Valve * Normal tricuspid valve structure and function. * Trace tricuspid regurgitation. * Unable to estimate RVSP due to lack of TR jet. * Estimated RVSP is RV-RA gradient 22 mmHg mmHg. Pulmonic Valve * No pulmonic regurgitation. * Pulmonic valve not well visualized. Aorta * Normally sized aortic root. Pericardium * The pericardium appears normal. IVC * The IVC is not well evaluated. Consult Discharge Plan - Plan Referrals: NONE,PCP [Primary Care Provider] - <RickAveryBerlin - Last Filed: 12/03/17 14:56> Date of Encounter: 12/03/17 Time of Encounter: 14:00 - Time Spent With Patient Total time spent is greater than 50% in coordination of care (as documented) at patient's floor/unit and/or counseling patient: GI History of Present Illness - Data of Consult Requesting Physician: Elham Arita MD - Consult Narrative History of present illness: Ms. Baltazar is a 72 year old female - Constitutional Vitals: Temp Pulse Resp BP Pulse Ox 98.4 F 76 16 137/69 96 12/03/17 12:00 12/03/17 12:55 12/03/17 12:55 12/03/17 12:55 12/03/17 12:55 Results - Labs CBC & Chem 7: 12/03/17 03:00 12/03/17 03:00 Labs: Last Result Calcium 9.0 mg/dL (8.6-10.3) 12/03/17 03:00 Troponin I 0.66 ng/mL (< 0.04) H* 12/03/17 03:00 Entire Visit Hgb 9.0 g/dL (11.5-15.4) L D 12/03/17 03:00 Hct 26.8 % (35.3-44.9) L 12/03/17 03:00 PT 12.0 Seconds (9.4-12.1) 12/02/17 07:20 Total Bilirubin 0.3 mg/dL (0.3-1.0) 12/03/17 09:03 AST 24 Units/L (13-39) 12/03/17 09:03 ALT 9 Units/L (7-52) 12/03/17 09:03 - ABG ABG results: ABG ABG pH 7.32 pH Units (7.32-7.45) 12/03/17 04:28 ABG pCO2 43 mmHg (35-45) 12/03/17 04:28 ABG pO2 83 mmHg (85-104) L 12/03/17 04:28 ABG O2 Saturation 95 % (95-98) 12/03/17 04:28 PT/INR, D-dimer PT 12.0 Seconds (9.4-12.1) 12/02/17 07:20 - Impressions Impressions Chest X-Ray 12/02/17 16:55 IMPRESSION: Endotracheal and nasogastric tube placement. Small pleural effusions. Mild pulmonary edema. D/ / Mannie Novak MD / Mannie Novak MD Interpreting Provider: Mannie Novak MD Echocardiogram 12/03/17 07:05 Impressions: LVEF 55-60%. Normal LV chamber size, wall thickness and function. Normal right ventricular structure and function. Mild aortic regurgitation. Unable to estimate pulmonary artery pressure due to lack of TR jet and IVC not seen, likely normal. Left Ventricular Wall Motion: Rest Echo Findings All wall segments showed normal motion. Findings: Study Quality * Technically adequate exam. ECG Findings * Normal sinus rhythm. Left Ventricle * LVEF 55-60%. * Normal LV chamber size, wall thickness and function. * Normal left ventricular diastolic function. Right Ventricle * Normal right ventricular structure and function. Left Atrium * Normal left atrial size. Right Atrium * Normal right atrial size. Interatrial Septum * Interatrial septum not well evaluated. Aortic Valve * Mildly calcified aortic valve leaflets. * Mild aortic regurgitation. * No aortic stenosis. Mitral Valve * Normal mitral valve structure and function. * No mitral regurgitation. Tricuspid Valve * Normal tricuspid valve structure and function. * Trace tricuspid regurgitation. * Unable to estimate RVSP due to lack of TR jet. * Estimated RVSP is RV-RA gradient 22 mmHg mmHg. Pulmonic Valve * No pulmonic regurgitation. * Pulmonic valve not well visualized. Aorta * Normally sized aortic root. Pericardium * The pericardium appears normal. IVC * The IVC is not well evaluated. - Attending Attestation I have personally performed a face to face evaluation on this patient. I have reviewed and agree with the care plan. History and Exam by me shows: Patient seen. Currently complaining of dry mouth but is postsurgical nothing by mouth with NG in place. Examination NG suction in place. Abdominal surgical site covered. Assessment: Small bowel obstruction status post bowel resection by Dr. Laureano. #2: Patient with dilated PD LFTs are normal. Recommendation: We will check CA 19-9and will do MRCP when patient is more stable
[2017-12-03] MEDS: Dexmedetomidine HCl 400 MCG/100 ML MLS IVC SCH (15:38)
[2017-12-04] MEDS: Piperacillin/Tazobactam 3.375 GM in 0.9 % Sodium Chloride Mini Bag 100 ML IVPB SCH ×3 (02:32→18:22)
[2017-12-04 03:29] LABS: Basophils # 0.1 K/mcL (0.0-0.2); Basophils % 0.3 %; Eosinophils % 0.1 %; Hematocrit 26.5 % (35.3-44.9); Hemoglobin 8.8 g/dL (11.5-15.4); Immature Granulocytes % 0.5 % (0-4); Lymphocytes # 2.3 K/mcL (0.6-4.6); Lymphocytes % 12.2 %; Mean Corpuscular HGB Conc 33.2 g/dL (31.6-35.5); Mean Corpuscular Hemoglobin 31.3 pg (28.0-33.3); Mean Corpuscular Volume 94.3 fL (83.0-100.0); Mean Platelet Volume 12.2 fL (9.4-12.4); Monocytes # 1.4 K/mcL (0.0-1.3); Monocytes % 7.6 %; Platelet Count 179 K/mcL (140-400); Red Blood Count 2.81 M/mcL (3.82-4.97); Red Cell Distribution Width 13.5 % (11.5-14.5); Segmented Neutrophils % 79.3 %
[2017-12-04 03:48] LABS: BUN/Creatinine Ratio 24 (6-26); Blood Urea Nitrogen 19 mg/dL (8-23); Calcium 9.3 mg/dL (8.6-10.3); Carbon Dioxide 24 mEq/L (23-29); Chloride 112 mEq/L (98-107); Glucose 94 mg/dL (70-105); Magnesium 2.3 mg/dL (1.6-2.6); Osmolality,Calculated 298 (280-300); Phosphorous 1.9 mg/dL (2.7-4.5); Sodium 143 mEq/L (136-145); eGFR For Non-African Americans > 60 (> 60)
[2017-12-04] MEDS: Ipratropium/Albuterol Neb 3 ML IH SCH ×4 (03:54→21:08)
[2017-12-04] MEDS: Artificial Tears SOLN 15 ML BOTTLE BOTH EYES SCH (05:04)
[2017-12-04] MEDS: *HR* Heparin 5,000 UNIT/ML VIAL SQ SCH ×3 (06:06→22:19)
[2017-12-04] MEDS: *HR* Metoprolol 5 MG/5 ML VIAL IVP SCH ×3 (06:06→18:22)
--- NOTE | 2017-12-04 07:29 | Pulmonology Progress Note ---
<TaraMartin W - Last Filed: 12/04/17 08:16> Date of Encounter: 12/04/17 Objective PUL Vital signs: Last Vital Signs Temp 97.1 F L 12/04/17 07:00 Pulse 88 12/04/17 08:00 Resp 14 12/04/17 08:00 BP 109/70 12/04/17 08:00 Pulse Ox 91 12/04/17 08:00 Results - Laboratory Findings CBC and BMP: 12/04/17 03:19 12/04/17 03:19 ABG ABG pH 7.32 pH Units (7.32-7.45) 12/03/17 04:28 ABG pCO2 43 mmHg (35-45) 12/03/17 04:28 ABG pO2 83 mmHg (85-104) L 12/03/17 04:28 ABG O2 Saturation 95 % (95-98) 12/03/17 04:28 PT/INR, D-dimer PT 12.0 Seconds (9.4-12.1) 12/02/17 07:20 Abnormal lab findings: Abnormal lab results WBC 18.9 K/mcL (4.3-11.1) H 12/04/17 03:19 RBC 2.81 M/mcL (3.82-4.97) L 12/04/17 03:19 Hgb 8.8 g/dL (11.5-15.4) L 12/04/17 03:19 Hct 26.5 % (35.3-44.9) L 12/04/17 03:19 Neutrophils # 15.0 K/mcL (1.6-8.9) H 12/04/17 03:19 Monocytes # 1.4 K/mcL (0.0-1.3) H 12/04/17 03:19 ABG pO2 83 mmHg (85-104) L 12/03/17 04:28 ABG Base Excess -4 mEq/L (-2 to 3) L 12/03/17 04:28 Chloride 112 mEq/L (98-107) H 12/04/17 03:19 POC Glucose 112 mg/dL (70-99) H 12/03/17 11:51 Phosphorus 1.9 mg/dL (2.7-4.5) L 12/04/17 03:19 Troponin I 0.66 ng/mL (< 0.04) H* 12/03/17 03:00 Serum Total Protein 5.5 g/dL (6.4-8.9) L 12/03/17 09:03 Globulin 1.8 g/dL (2.4-3.5) L 12/03/17 09:03 - Microbiology Findings Microbiology Findings: Microbiology, Last 48 Hours 12/02/17 17:10 Blood Culture - Preliminary Peripheral Venipuncture Culture is incubating and being continuously monitored for growth. Final report to follow. 12/02/17 17:14 Blood Culture - Preliminary Peripheral Venipuncture Culture is incubating and being continuously monitored for growth. Final report to follow. - Clinical Findings Intake & Output: Intake & Output 12/03/17 12/04/17 12/04/17 23:59 07:59 15:59 Intake Total 100 / 100 100 / 100 Output Total 975 / 975 200 / 200 Balance -875 / -875 -100 / -100 Weight 65.9 kg Consult Discharge Plan - Plan Referrals: NONE,PCP [Primary Care Provider] - - Attending Attestation I examined this patient and my medical decision-making was reviewed with the Resident Physician. I agree with the documented findings, disposition and treatment plan as described except to the extent set forth below. We independently had [id number] contact with the patient Patient seen and examined at bedside Labs, radiology, chart personally reviewed. Impression: Septic Shock SBO with Ischemic Bowel s/p Resection Troponin Elevation COPD VÍCTOR Recs: -Resolved; recommend continuation of antimicrobials for intra-abdominal infection for 10-14 days based upon clinical course -GEN surgery managing; recommend removal of NG tube as soon as possible out of bed to chair incentive spirometry early ambulation DVT prophylaxis -Echocardiogram is normal continue beta lv and aspirin outpatient follow- up with PCP for cardiac risk stratification/optimization as indicated -Continue schedule bronchodilators outpatient follow-up with pulmonary function testing -Recommend continuation of positive airway pressure at night patient will need to be on a telemetry monitored floor with continuous pulse oximetry high risk for cardiopulmonary failure if on on monitored floor with continuous narcotic use. to bring the patient's CPAP to the hospital if that cannot be provided this evening that she needs to have CPAP provided for her here with empiric settings APAP 4-12 FiO2 bleed to keep saturation greater than 88% Pulmonary will sign off please call with any questions; thank you for this consultation <Dea Dougherty - Last Filed: 12/04/17 11:40> Date of Encounter: 12/04/17 Time of Encounter: 08:00 Assessment and Plan (1) Septic shock Current Visit: Yes Status: Resolved Patient originally met septic shock criteria, hypotension has resolved and no longer is in need of pressers, tachycardia has resolved, leukocytosis has decreased. Bowel necrosis was likely source of infection Blood cultures pending Continue Zosyn De-escalate based on culture (2) Ischemic necrosis of small bowel Current Visit: Yes Status: Acute Post-op day 2 post 150 cm small bowel resection due to small bowel necrosis Continue postop pain control, PPI, and antiemetics NG tube in place on low intermittent suction General surgery following (3) Non-sustained ventricular tachycardia Current Visit: Yes Status: Acute Patient had multiple runs of Vtach on telemetry Troponins were treneded and decreased from 1.03 to 0.66 Cardiac monitoring Echo showed ejection fraction 55-60% (4) Elevated troponin Current Visit: Yes Status: Acute Elevated troponin in the setting of septic shock and abdominal surgery Initial EKG 12/02/17 6:09 revealed sinus tachycardia heart rate 116, flipped T waves V2 through V5 Most recent EKG 12/02/17 17:46 revealed sinus rhythm heart rate 71, no signs of ischemia Patient denies chest pain at this time, continue monitoring Echo shows ejection fraction 55-60% (5) HTN (hypertension) Current Visit: No Status: Chronic Metoprolol 5mg Q6 Continue close monitoring Qualifiers: Hypertension type: essential hypertension Qualified Code(s): I10 - Essential (primary) hypertension (6) Hyperlipidemia Current Visit: Yes Status: Chronic can resume home medications Qualifiers: Hyperlipidemia type: unspecified Qualified Code(s): E78.5 - Hyperlipidemia , unspecified (7) Obstructive sleep apnea Current Visit: Yes Status: Chronic resume CPAP at night (8) History of gastric bypass Current Visit: No Status: Chronic continue current therapy (9) DVT prophylaxis Current Visit: Yes Status: Acute EPCDs SQ Heparin 5000 units Q8 Subjective Principal diagnosis: ischemic necrosis of small bowel Interval history: Ms. Baltazar is a 72-year-old female POD #2 for partial necrotic small bowel resection. She is no longer on pressure support and was extubated yesterday to NC and is doing well. She does have sleep apnea, did not use CPAP last night but will have her bring her CPAP for her use tonight. She has been instructed on how to do insentive spirometry today. Objective PUL Vital signs: Last Vital Signs Temp 98.5 F 12/04/17 04:00 Pulse 96 12/04/17 06:00 Resp 14 12/04/17 06:00 BP 112/74 12/04/17 06:00 Pulse Ox 93 12/04/17 06:00 General appearance: no acute distress Eyes: nonicteric ENT: oropharynx moist Neck: no lymphadenopathy Effort: normal Auscultation: bilateral: clear Cardiovascular: regular rate and rhythm Gastrointestinal: normoactive bowel sounds, soft, non-tender Integumentary: normal Extremities: no cyanosis, pink and warm, edema (1+ at the feet) normal mental status Results - Laboratory Findings CBC and BMP: 12/04/17 03:19 12/04/17 03:19 ABG ABG pH 7.32 pH Units (7.32-7.45) 12/03/17 04:28 ABG pCO2 43 mmHg (35-45) 12/03/17 04:28 ABG pO2 83 mmHg (85-104) L 12/03/17 04:28 ABG O2 Saturation 95 % (95-98) 12/03/17 04:28 PT/INR, D-dimer PT 12.0 Seconds (9.4-12.1) 12/02/17 07:20 Abnormal lab findings: Abnormal lab results WBC 18.9 K/mcL (4.3-11.1) H 12/04/17 03:19 RBC 2.81 M/mcL (3.82-4.97) L 12/04/17 03:19 Hgb 8.8 g/dL (11.5-15.4) L 12/04/17 03:19 Hct 26.5 % (35.3-44.9) L 12/04/17 03:19 Neutrophils # 15.0 K/mcL (1.6-8.9) H 12/04/17 03:19 Monocytes # 1.4 K/mcL (0.0-1.3) H 12/04/17 03:19 ABG pO2 83 mmHg (85-104) L 12/03/17 04:28 ABG Base Excess -4 mEq/L (-2 to 3) L 12/03/17 04:28 Chloride 112 mEq/L (98-107) H 12/04/17 03:19 POC Glucose 112 mg/dL (70-99) H 12/03/17 11:51 Phosphorus 1.9 mg/dL (2.7-4.5) L 12/04/17 03:19 Troponin I 0.66 ng/mL (< 0.04) H* 12/03/17 03:00 Serum Total Protein 5.5 g/dL (6.4-8.9) L 12/03/17 09:03 Globulin 1.8 g/dL (2.4-3.5) L 12/03/17 09:03 - Microbiology Findings Microbiology Findings: Microbiology, Last 48 Hours 12/02/17 17:10 Blood Culture - Preliminary Peripheral Venipuncture Culture is incubating and being continuously monitored for growth. Final report to follow. 12/02/17 17:14 Blood Culture - Preliminary Peripheral Venipuncture Culture is incubating and being continuously monitored for growth. Final report to follow. - Clinical Findings Intake & Output: Intake & Output 12/03/17 12/03/17 12/04/17 15:59 23:59 07:59 Intake Total 317 / 317 100 / 100 100 / 100 Output Total 400 / 400 975 / 975 200 / 200 Balance -83 / -83 -875 / -875 -100 / -100 Weight 65.9 kg
[2017-12-04] MEDS: Pantoprazole 40 MG VIAL IVP SCH (07:59)
--- NOTE | 2017-12-04 08:20 | General Surgery Progress Note ---
<Los Mccall R - Last Filed: 12/04/17 09:15> Date of Encounter: 12/04/17 Time of Encounter: 07:45 - Assessment and Plan (1) Small bowel obstruction Current Visit: Yes Status: Acute POD #2 s/p exploratory laparotomy, 150 cm small bowel resection with Dr. Laureano Patient is doing well, extubated yesterday Vital signs within normal limits, afebrile, WBC 26>18>19 Plan: Out of ICU today Dietary to follow, starting TPN Consult for PICC NG to LIWS NPO- ice chips ok Daily PT/OT Comfort care and pain management Daily wound care prn antiemetic PPI prophylaxis (2) Septic shock Current Visit: Yes Status: Resolved Patient is off of pressors, improvement in vital signs, WBC 26>18>19 Continue antibiotics- currently Zosyn Blood cultures pending Surgical path pending (3) Ischemic necrosis of small bowel Current Visit: Yes Status: Acute s/p small bowel resection. continue care as above (4) DVT prophylaxis Current Visit: Yes Status: Acute EPCDs Heparin Subjective Patient reports: no new complaints, still having pain, pain is less, no flatus, no bowel movement, afebrile Narrative: Reports feeling well this morning. Pain controlled with medication. Denies nausea or vomiting. Objective Vital Signs - Last 8 Hours Temp Pulse Resp BP Pulse Ox 12/04/17 08:15 97.1 F L 12/04/17 08:00 88 14 109/70 91 12/04/17 07:00 97.1 F L 90 14 106/69 91 12/04/17 06:00 96 14 112/74 93 12/04/17 05:00 98 14 124/73 93 12/04/17 04:00 98.5 F 93 14 121/68 93 12/04/17 03:54 16 92 12/04/17 03:00 93 16 127/73 92 12/04/17 02:00 77 16 117/84 94 12/04/17 01:00 99 16 103/69 94 Intake and Output 12/03/17 12/04/17 12/04/17 23:59 07:59 15:59 Intake Total 100 / 100 100 / 100 Output Total 975 / 975 200 / 200 150 / 150 Balance -875 / -875 -100 / -100 -150 / -150 Intake: IV Fluids 100 / 100 100 / 100 Zosyn 3.375 GM In 0.9 % Sodium 100 / 100 100 / 100 Chloride (Mini-Bag +) 100 ML @ 25 mls/hr IVPB Q8H [facility] Rx#: [id number] Oral 0 / 0 0 / 0 Output: Catheter 975 / 975 200 / 200 150 / 150 Gastric Drainage 0 / 0 0 / 0 0 / 0 Other: Weight 65.9 kg - General physical appearance well developed, no distress, no pain - Eyes PERRL, normal ocular movement - ENT normal mucosa, atraumatic, normocephalic, Other (NG in place) - Neck Neck exam: trachea midline, no venous distension - Respiratory normal expansion, normal respiratory effort - Cardiovascular Cardiovascular exam: Present: RRR - Abdomen Abdomen: Present: soft, tender (expected post surgical tenderness). Absent: bowel sounds present - Incision Incision: Present: clean and dry, intact (Surgical susan present and intact) - Integumentary no rash - Neurologic CN 2-12 grossly intact - Musculoskeletal normal posture - Psychiatric oriented to time, oriented to person, oriented to place, speech is normal, memory intact - Labs 12/04/17 03:19 12/04/17 03:19 Diabetes panel 12/03/17 12/04/17 Range/Units 09:03 03:19 Sodium 143 (136-145) mEq/L Potassium 4.0 (3.5-5.1) mEq/L Chloride 112 H (98-107) mEq/L Carbon Dioxide 24 (23-29) mEq/L BUN 19 (8-23) mg/dL Creatinine 0.78 (0.60-1.20) mg/dL Glucose 94 (70-105) mg/dL Calcium 9.3 (8.6-10.3) mg/dL AST 24 (13-39) Units/L ALT 9 (7-52) Units/L Alkaline Phosphatase 61 (34-104) Units/L Albumin 3.7 (3.5-5.7) g/dL Calcium panel 12/03/17 12/04/17 Range/Units 09:03 03:19 Calcium 9.3 (8.6-10.3) mg/dL Phosphorus 1.9 L (2.7-4.5) mg/dL Albumin 3.7 (3.5-5.7) g/dL Pituitary panel 12/04/17 Range/Units 03:19 Sodium 143 (136-145) mEq/L Potassium 4.0 (3.5-5.1) mEq/L Chloride 112 H (98-107) mEq/L Carbon Dioxide 24 (23-29) mEq/L BUN 19 (8-23) mg/dL Creatinine 0.78 (0.60-1.20) mg/dL Glucose 94 (70-105) mg/dL Calcium 9.3 (8.6-10.3) mg/dL Adrenal panel 12/03/17 12/04/17 Range/Units 09:03 03:19 Sodium 143 (136-145) mEq/L Potassium 4.0 (3.5-5.1) mEq/L Chloride 112 H (98-107) mEq/L Carbon Dioxide 24 (23-29) mEq/L BUN 19 (8-23) mg/dL Creatinine 0.78 (0.60-1.20) mg/dL Glucose 94 (70-105) mg/dL Calcium 9.3 (8.6-10.3) mg/dL Total Bilirubin 0.3 (0.3-1.0) mg/dL AST 24 (13-39) Units/L ALT 9 (7-52) Units/L Alkaline Phosphatase 61 (34-104) Units/L Albumin 3.7 (3.5-5.7) g/dL Consult Discharge Plan - Plan Referrals: NONE,PCP [Primary Care Provider] - <Prem Laureano - Last Filed: 12/04/17 10:46> Date of Encounter: 12/04/17 Objective Vital Signs - Last 8 Hours Temp Pulse Resp BP Pulse Ox 12/04/17 08:15 97.1 F L 12/04/17 08:00 88 14 109/70 91 12/04/17 07:00 97.1 F L 90 14 106/69 91 12/04/17 06:00 96 14 112/74 93 12/04/17 05:00 98 14 124/73 93 12/04/17 04:00 98.5 F 93 14 121/68 93 12/04/17 03:54 16 92 12/04/17 03:00 93 16 127/73 92 Intake and Output 12/03/17 12/04/17 12/04/17 23:59 07:59 15:59 Intake Total 100 / 100 100 / 100 Output Total 975 / 975 200 / 200 150 / 150 Balance -875 / -875 -100 / -100 -150 / -150 Intake: IV Fluids 100 / 100 100 / 100 Zosyn 3.375 GM In 0.9 % Sodium 100 / 100 100 / 100 Chloride (Mini-Bag +) 100 ML @ 25 mls/hr IVPB Q8H [facility] Rx#: [id number] Oral 0 / 0 0 / 0 Output: Catheter 975 / 975 200 / 200 150 / 150 Gastric Drainage 0 / 0 0 / 0 0 / 0 Other: Weight 65.9 kg - Labs 12/04/17 03:19 12/04/17 03:19 Diabetes panel 12/03/17 12/04/17 Range/Units 09:03 03:19 Sodium 143 (136-145) mEq/L Potassium 4.0 (3.5-5.1) mEq/L Chloride 112 H (98-107) mEq/L Carbon Dioxide 24 (23-29) mEq/L BUN 19 (8-23) mg/dL Creatinine 0.78 (0.60-1.20) mg/dL Glucose 94 (70-105) mg/dL Calcium 9.3 (8.6-10.3) mg/dL AST 24 (13-39) Units/L ALT 9 (7-52) Units/L Alkaline Phosphatase 61 (34-104) Units/L Albumin 3.7 (3.5-5.7) g/dL Calcium panel 12/03/17 12/04/17 Range/Units 09:03 03:19 Calcium 9.3 (8.6-10.3) mg/dL Phosphorus 1.9 L (2.7-4.5) mg/dL Albumin 3.7 (3.5-5.7) g/dL Pituitary panel 12/04/17 Range/Units 03:19 Sodium 143 (136-145) mEq/L Potassium 4.0 (3.5-5.1) mEq/L Chloride 112 H (98-107) mEq/L Carbon Dioxide 24 (23-29) mEq/L BUN 19 (8-23) mg/dL Creatinine 0.78 (0.60-1.20) mg/dL Glucose 94 (70-105) mg/dL Calcium 9.3 (8.6-10.3) mg/dL Adrenal panel 12/03/17 12/04/17 Range/Units 09:03 03:19 Sodium 143 (136-145) mEq/L Potassium 4.0 (3.5-5.1) mEq/L Chloride 112 H (98-107) mEq/L Carbon Dioxide 24 (23-29) mEq/L BUN 19 (8-23) mg/dL Creatinine 0.78 (0.60-1.20) mg/dL Glucose 94 (70-105) mg/dL Calcium 9.3 (8.6-10.3) mg/dL Total Bilirubin 0.3 (0.3-1.0) mg/dL AST 24 (13-39) Units/L ALT 9 (7-52) Units/L Alkaline Phosphatase 61 (34-104) Units/L Albumin 3.7 (3.5-5.7) g/dL - Attending Attestation I examined this patient and my medical decision-making was reviewed with the Resident Physician. I agree with the documented findings, disposition and treatment plan as described except to the extent set forth below. The patient is seen and evaluated on morning rounds with the resident. She is made a tremendous improvement. We will continue to during GI tract with NG tube. I will start TPN today. Await onset of GI function. She has had a tremendous response to surgery and is pain-free and stable. We can transfer out of the ICU today Prem Laureano MD FACS
[2017-12-04] MEDS ORDERED: Naloxone 0.4 MG/ML INJ IVP PRN (09:11)
[2017-12-04] MEDS ORDERED: Ondansetron ODT 4 MG TAB.RAPDIS SL PRN (09:11)
[2017-12-04] MEDS ORDERED: 0.9 % Sodium Chloride 500 ML IVC PRN (09:11)
[2017-12-04] MEDS ORDERED: *HR* HYDROmorphone 20 MG/20 ML PCA IVC PRN (09:11)
[2017-12-04] MEDS ORDERED: Lidocaine -MPF 1% 5 ML AMPUL INFILT ONE (09:19)
[2017-12-04] MEDS ORDERED: D10% in Water 500 ML IVC PRN (11:30)
[2017-12-04] MEDS: Ringers Solution, Lactated 1,000 ML IVC SCH (14:58)
[2017-12-04] MEDS ORDERED: Clinimix E 5%-15% SOLUTION 2,000 ML with MVI, adult with vitamin K 10 ML IVC SCH (17:00)
--- NOTE | 2017-12-04 17:26 | Electrocardiograph Report ---
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
--- NOTE | 2017-12-04 17:34 | Electrocardiograph Report ---
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
--- NOTE | 2017-12-04 17:34 | Electrocardiograph Report ---
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
[2017-12-05] MEDS: *HR* Metoprolol 5 MG/5 ML VIAL IVP SCH ×5 (00:10→23:32)
[2017-12-05] MEDS: Piperacillin/Tazobactam 3.375 GM in 0.9 % Sodium Chloride Mini Bag 100 ML IVPB SCH ×3 (01:37→18:27)
[2017-12-05] MEDS: Ringers Solution, Lactated 1,000 ML IVC SCH (02:39)
[2017-12-05] MEDS: Ipratropium/Albuterol Neb 3 ML IH SCH ×4 (03:35→21:50)
[2017-12-05 04:37] LABS: Basophils # 0.1 K/mcL (0.0-0.2); Basophils % 0.4 %; Eosinophils # 0.4 K/mcL (0.0-0.6); Eosinophils % 2.9 %; Hematocrit 22.4 % (35.3-44.9); Hemoglobin 7.6 g/dL (11.5-15.4); Immature Granulocytes % 0.3 % (0-4); Lymphocytes # 2.6 K/mcL (0.6-4.6); Lymphocytes % 18.1 %; Mean Corpuscular HGB Conc 33.9 g/dL (31.6-35.5); Mean Corpuscular Hemoglobin 31.9 pg (28.0-33.3); Mean Corpuscular Volume 94.1 fL (83.0-100.0); Monocytes # 0.8 K/mcL (0.0-1.3); Monocytes % 5.6 %; Neutrophils # 10.4 K/mcL (1.6-8.9); Platelet Count 175 K/mcL (140-400); Red Blood Count 2.38 M/mcL (3.82-4.97); Red Cell Distribution Width 13.5 % (11.5-14.5); Segmented Neutrophils % 72.7 %
[2017-12-05 05:02] LABS: BUN/Creatinine Ratio 27 (6-26); Blood Urea Nitrogen 19 mg/dL (8-23); Calcium 8.9 mg/dL (8.6-10.3); Carbon Dioxide 26 mEq/L (23-29); Chloride 109 mEq/L (98-107); Glucose 118 mg/dL (70-105); Magnesium 2.1 mg/dL (1.6-2.6); Osmolality,Calculated 295 (280-300); Phosphorous 1.4 mg/dL (2.7-4.5); Potassium 3.2 mEq/L (3.5-5.1); Sodium 141 mEq/L (136-145); eGFR For Non-African Americans > 60 (> 60)
[2017-12-05] MEDS: *HR* Heparin 5,000 UNIT/ML VIAL SQ SCH ×3 (05:33→23:08)
[2017-12-05] MEDS: Pantoprazole 40 MG VIAL IVP SCH (09:08)
--- NOTE | 2017-12-05 12:18 | General Surgery Progress Note ---
<Los Mccall R - Last Filed: 12/05/17 13:06> Date of Encounter: 12/05/17 Time of Encounter: 08:45 - Assessment and Plan (1) Small bowel obstruction Current Visit: Yes Status: Acute POD #3 s/p exploratory laparotomy, 150 cm small bowel resection with Dr. Laureano Patient doing very well. VS-WNL, afebrile, leukocytosis improving Plan: Clamp NG today and revaluate at 4 hours, possibly d/c NG if output remains <300 TPN with Dietary following PICC NPO- ice chips ok Daily PT/OT Comfort care and pain management Daily wound care prn antiemetic PPI prophylaxis (2) Acute blood loss anemia Current Visit: Yes Status: Acute Patient hemoglobin 7.5 today, has been down trending since surgery. Patient is not currently symptomatic and vital signs are within normal limits Closely follow h/h (3) Ischemic necrosis of small bowel Current Visit: Yes Status: Acute s/p small bowel resection. continue care as above (4) DVT prophylaxis Current Visit: Yes Status: Acute EPCDs Heparin Subjective Patient reports: no new complaints, pain is less, voiding w/o difficulty, flatus , no bowel movement, afebrile Narrative: Patient feeling great this morning. Denies abdominal pain. Admits to flatus, no recent bowel movement. Tolerating ice chips without nausea or vomiting. Objective Vital Signs - Last 8 Hours Temp Pulse Resp BP Pulse Ox 12/05/17 11:45 97.5 F L 80 16 135/84 93 12/05/17 11:09 16 92 12/05/17 07:11 98.0 F 88 16 134/76 92 12/05/17 04:46 98.1 F 83 16 148/87 92 Intake and Output 12/04/17 12/05/17 12/05/17 23:59 07:59 15:59 Intake Total 100 / 100 350 / 350 100 / 100 Output Total 150 / 150 295 / 295 Balance -50 / -50 55 / 55 100 / 100 Intake: IV Fluids 100 / 100 350 / 350 100 / 100 Intralipid 20% 250 ML @ 21 mls/ 250 / 250 hr IVPB DAILY@1700 [facility] Rx#: [id number] Zosyn 3.375 GM In 0.9 % Sodium 100 / 100 100 / 100 Chloride (Mini-Bag +) 100 ML @ 25 mls/hr IVPB Q8H [facility] Rx#: [id number] Potassium Chloride 10 mEq/100mL 100 / 100 10 meq In 100 ml @ 100 mls/hr IVPB Q1H [facility] Rx#:[id number] Output: Urine 150 / 150 225 / 225 Gastric Tube Lavage Amount 70 / 70 L nare 70 / 70 Other: Meal NPO for breakfast # Voids 1 1 Blood Glucose* 121 160 146 - General physical appearance well developed, well nourished, no distress - Eyes normal ocular movement - ENT normal mucosa, atraumatic, normocephalic, Other (NG tube in place) - Neck Neck exam: trachea midline - Respiratory normal expansion, normal respiratory effort - Cardiovascular Cardiovascular exam: Present: RRR - Abdomen Abdomen: Present: bowel sounds present (Infrequent), soft, tender (Expected postsurgical tenderness). Absent: distended, guarding - Incision Incision: Present: clean and dry, intact (Surgical susan present and intact) - Neurologic CN 2-12 grossly intact - Musculoskeletal normal posture - Psychiatric oriented to time, oriented to person, oriented to place, speech is normal, memory intact - Labs 12/05/17 04:00 12/05/17 04:00 Diabetes panel 12/05/17 12/05/17 Range/Units 04:00 04:00 Sodium 141 (136-145) mEq/L Potassium 3.2 L (3.5-5.1) mEq/L Chloride 109 H (98-107) mEq/L Carbon Dioxide 26 (23-29) mEq/L BUN 19 (8-23) mg/dL Creatinine 0.71 (0.60-1.20) mg/dL Glucose 118 H (70-105) mg/dL Calcium 8.9 (8.6-10.3) mg/dL Triglycerides 110 (< 150) mg/dL Calcium panel 12/05/17 Range/Units 04:00 Calcium 8.9 (8.6-10.3) mg/dL Phosphorus 1.4 L (2.7-4.5) mg/dL Pituitary panel 12/05/17 Range/Units 04:00 Sodium 141 (136-145) mEq/L Potassium 3.2 L (3.5-5.1) mEq/L Chloride 109 H (98-107) mEq/L Carbon Dioxide 26 (23-29) mEq/L BUN 19 (8-23) mg/dL Creatinine 0.71 (0.60-1.20) mg/dL Glucose 118 H (70-105) mg/dL Calcium 8.9 (8.6-10.3) mg/dL Adrenal panel 12/05/17 Range/Units 04:00 Sodium 141 (136-145) mEq/L Potassium 3.2 L (3.5-5.1) mEq/L Chloride 109 H (98-107) mEq/L Carbon Dioxide 26 (23-29) mEq/L BUN 19 (8-23) mg/dL Creatinine 0.71 (0.60-1.20) mg/dL Glucose 118 H (70-105) mg/dL Calcium 8.9 (8.6-10.3) mg/dL Consult Discharge Plan - Plan Referrals: NONE,PCP [Primary Care Provider] - <Camron Barger - Last Filed: 12/05/17 14:29> Date of Encounter: 12/05/17 Objective Vital Signs - Last 8 Hours Temp Pulse Resp BP Pulse Ox 12/05/17 11:45 97.5 F L 80 16 135/84 93 12/05/17 11:09 16 92 12/05/17 07:11 98.0 F 88 16 134/76 92 Intake and Output 12/04/17 12/05/17 12/05/17 23:59 07:59 15:59 Intake Total 100 / 100 350 / 350 100 / 100 Output Total 150 / 150 295 / 295 Balance -50 / -50 55 / 55 100 / 100 Intake: IV Fluids 100 / 100 350 / 350 100 / 100 Intralipid 20% 250 ML @ 21 mls/ 250 / 250 hr IVPB DAILY@1700 [facility] Rx#: [id number] Zosyn 3.375 GM In 0.9 % Sodium 100 / 100 100 / 100 Chloride (Mini-Bag +) 100 ML @ 25 mls/hr IVPB Q8H [facility] Rx#: [id number] Potassium Chloride 10 mEq/100mL 100 / 100 10 meq In 100 ml @ 100 mls/hr IVPB Q1H [facility] Rx#:[id number] Output: Urine 150 / 150 225 / 225 Gastric Tube Lavage Amount 70 / 70 L nare 70 / 70 Other: Meal NPO for breakfast # Voids 1 1 Blood Glucose* 121 160 146 - Labs 09/22/18 04:00 12/05/17 04:00 Diabetes panel 12/05/17 12/05/17 Range/Units 04:00 04:00 Sodium 141 (136-145) mEq/L Potassium 3.2 L (3.5-5.1) mEq/L Chloride 109 H (98-107) mEq/L Carbon Dioxide 26 (23-29) mEq/L BUN 19 (8-23) mg/dL Creatinine 0.71 (0.60-1.20) mg/dL Glucose 118 H (70-105) mg/dL Calcium 8.9 (8.6-10.3) mg/dL Triglycerides 110 (< 150) mg/dL Calcium panel 12/05/17 Range/Units 04:00 Calcium 8.9 (8.6-10.3) mg/dL Phosphorus 1.4 L (2.7-4.5) mg/dL Pituitary panel 12/05/17 Range/Units 04:00 Sodium 141 (136-145) mEq/L Potassium 3.2 L (3.5-5.1) mEq/L Chloride 109 H (98-107) mEq/L Carbon Dioxide 26 (23-29) mEq/L BUN 19 (8-23) mg/dL Creatinine 0.71 (0.60-1.20) mg/dL Glucose 118 H (70-105) mg/dL Calcium 8.9 (8.6-10.3) mg/dL Adrenal panel 12/05/17 Range/Units 04:00 Sodium 141 (136-145) mEq/L Potassium 3.2 L (3.5-5.1) mEq/L Chloride 109 H (98-107) mEq/L Carbon Dioxide 26 (23-29) mEq/L BUN 19 (8-23) mg/dL Creatinine 0.71 (0.60-1.20) mg/dL Glucose 118 H (70-105) mg/dL Calcium 8.9 (8.6-10.3) mg/dL - Attending Attestation I have personally seen and examined the patient. I have reviewed pertinent labs , imaging, progress notes, including this one. I agree with the above assessment and plan and wish to include the following... clamped NG tube; minimal residual after 4 hrs; having bowel function start sips of clear activity as tolerated cont current pain regimen - likely transition to PO in AM if doing well
--- NOTE | 2017-12-05 13:38 | Internal Med Progress Note ---
Hospitalist Progress Note - Encounter Date of Encounter: 12/05/17 Time of Encounter: 13:36 - Subjective Interval History: Patient seen and evaluated at bedside, in NG tube has been removed. Patient denies abdominal pain, nausea or vomiting. Passing gas, but has not had a bowel movement. - Exam Vitals: Temp Pulse Resp BP Pulse Ox 97.5 F L 80 16 135/84 93 12/05/17 11:45 12/05/17 11:45 12/05/17 11:45 12/05/17 11:45 12/05/17 11:45 Exam: General: Alert and oriented 4. No acute distress. Cardiovascular: RRR, Normal S1 & S2, no rubs, murmurs or gallops. No JVD. Lungs: Clear to auscultation bilaterally, no wheezes or crackles. Abdomen: Soft, non-tender, no rigidity. NABS in all 4 quadrants. Surgical dressing in the mid umbilical area is clean and intact. Extremities: no edema or tenderness, no joint swelling or clubbing. Neurological:Normal cognition. CN II-XII intact. Rest of the physical exam is non contributory - Assessment and Plan (1) Small bowel obstruction Current Visit: Yes Status: Acute Assessment and Plan: POD #3 s/p exploratory laparotomy, 150 cm small bowel resection with Dr. Laureano Plan NG tube removed as per surgery recommendations NPO Pain control with hydromoprhone 1mg On pantoprazole as NPO Will continue to follow surgery recommendations Patient on TPN for nutrition (2) Sepsis Current Visit: Yes Status: Acute Assessment and Plan: Resolving. WBC trending down, patient is hemodynamycally stable. Possible secondary to Small bowel ischemia. Plan Continue current antibiotics. On piperacilli/Tazobactam Blood culture negative until now. Will consider ID consult to discuss appropriate antibiotics length. (3) Ischemic necrosis of small bowel Current Visit: Yes Status: Acute Assessment and Plan: S/p POD #3 s/p exploratory laparotomy, 150 cm small bowel resection with Dr. Laureano 12/02/2017 Plan of care as per #1. (4) Hyperlipidemia Current Visit: Yes Status: Chronic Assessment and Plan: Hold statin as patient NPO per surgical recommendations. (5) DVT prophylaxis Current Visit: Yes Status: Acute Assessment and Plan: ON heparin 5000 units SubQ BID for DVT prophylaxis. Plus intermittent pneumatic compression. (6) HTN (hypertension) Current Visit: No Status: Chronic Assessment and Plan: Blood pressure in the 148-130 Systolic range. ON metoprolol 5mg/IV Q6HR PRN for SBP >190 (7) Elevated troponin Current Visit: Yes Status: Acute Assessment and Plan: Possible secondary to Sepsis. No chest pain. Plan If patient report chest pain will repeat Trop level and consider cardiology evaluation. (8) History of gastric bypass Current Visit: No Status: Chronic (9) Obstructive sleep apnea Current Visit: Yes Status: Chronic (10) Pancreatic duct dilated Current Visit: Yes Status: Acute Assessment and Plan: Possible MRCP when patient more stable. As per GI note. Will continue to follow GI recommendations. (11) Anemia Current Visit: Yes Status: Acute Assessment and Plan: Possible due to acute blood lost post OP. H&H stable with no signs of active bleeding Plan: Will continue to monitor H&H consider transfusing if Hb <7, Hct <23 or patient becomes symptomatic. Iron panel (12) Hypokalemia Current Visit: Yes Status: Acute Assessment and Plan: Electrolyte being replaced. f/u am BMP. - Summary of Assessment and Plan Summary of Assessment and Plan: Patient to remain hospitalized due to resolving sepsis. Still NPO on TPN - Time Spent with Patient Total time spent is greater than 50% in coordination of care (as documented) at patient's floor/unit and/or counseling patient: Greater than 35 minutes Plan of Care Discussed with: patient (the patient's and the nurse.) Internal Medicine: Result - Labs CBC & Chem 7: 12/05/17 04:00 12/05/17 04:00 Labs: Short CBC 12/05/17 Range/Units 04:00 WBC 14.4 H (4.3-11.1) K/mcL Hgb 7.6 L (11.5-15.4) g/dL Hct 22.4 L (35.3-44.9) % Plt Count 175 (140-400) K/mcL Neutrophils # 10.4 H (1.6-8.9) K/mcL BMP 12/05/17 04:00 Sodium 141 Potassium 3.2 L Chloride 109 H Carbon Dioxide 26 BUN 19 Creatinine 0.71 Glucose 118 H Calcium 8.9 - ABG Interpretation ABG results: ABG ABG pH 7.32 pH Units (7.32-7.45) 12/03/17 04:28 ABG pCO2 43 mmHg (35-45) 12/03/17 04:28 ABG pO2 83 mmHg (85-104) L 12/03/17 04:28 ABG O2 Saturation 95 % (95-98) 12/03/17 04:28 PT/INR, D-dimer PT 12.0 Seconds (9.4-12.1) 12/02/17 07:20 Consult Discharge Plan - Plan Referrals: NONE,PCP [Primary Care Provider] - (2) Sepsis Qualifiers: Sepsis type: sepsis due to unspecified organism Qualified Code(s): A41.9 - Sepsis, unspecified organism (4) Hyperlipidemia Qualifiers: Hyperlipidemia type: unspecified Qualified Code(s): E78.5 - Hyperlipidemia, unspecified (6) HTN (hypertension) Qualifiers: Hypertension type: essential hypertension Qualified Code(s): I10 - Essential (primary) hypertension (11) Anemia Qualifiers: Anemia type: unspecified type Qualified Code(s): D64.9 - Anemia, unspecified
[2017-12-05] MEDS ORDERED: Clinimix E 5%-15% SOLUTION 2,000 ML with MVI, adult with vitamin K 10 ML IVC SCH (17:00)
[2017-12-06] MEDS: Piperacillin/Tazobactam 3.375 GM in 0.9 % Sodium Chloride Mini Bag 100 ML IVPB SCH ×3 (02:59→18:22)
[2017-12-06] MEDS ORDERED: Ipratropium/Albuterol Neb 3 ML IH PRN (03:18)
[2017-12-06] MEDS: *HR* Heparin 5,000 UNIT/ML VIAL SQ SCH ×3 (05:03→21:41)
[2017-12-06] MEDS: *HR* Metoprolol 5 MG/5 ML VIAL IVP SCH ×4 (05:03→23:40)
[2017-12-06 05:28] LABS: BUN/Creatinine Ratio 26 (6-26); Blood Urea Nitrogen 19 mg/dL (8-23); Calcium 9.1 mg/dL (8.6-10.3); Carbon Dioxide 27 mEq/L (23-29); Chloride 107 mEq/L (98-107); Glucose 107 mg/dL (70-105); Magnesium 2.1 mg/dL (1.6-2.6); Osmolality,Calculated 295 (280-300); Phosphorous 2.8 mg/dL (2.7-4.5); Potassium 3.6 mEq/L (3.5-5.1); Sodium 141 mEq/L (136-145); eGFR For Non-African Americans > 60 (> 60)
[2017-12-06] MEDS: Pantoprazole 40 MG VIAL IVP SCH (08:00)
[2017-12-06] MEDS: Ringers Solution, Lactated 1,000 ML IVC SCH (08:03)
[2017-12-06] MEDS ORDERED: *HR* OxyCODONE/APAP 7.5/325 TABLET PO PRN (09:12)
--- NOTE | 2017-12-06 09:17 | General Surgery Progress Note ---
<Los Mccall R - Last Filed: 12/06/17 09:39> Date of Encounter: 12/06/17 Time of Encounter: 08:00 - Assessment and Plan (1) Small bowel obstruction Current Visit: Yes Status: Acute POD #4 s/p exploratory laparotomy, 150 cm small bowel resection with Dr. Laureano Patient doing very well. 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 Patient is not currently symptomatic and vital signs are within normal limits Closely follow h/h (3) Ischemic necrosis of small bowel Current Visit: Yes Status: Acute s/p small bowel resection. continue care as above (4) DVT prophylaxis Current Visit: Yes Status: Acute EPCDs Heparin Subjective Patient reports: no new complaints, pain is less, tolerating liquids well, voiding w/o difficulty, flatus, bowel movement, afebrile Narrative: patient reports well controlled pain. BM this morning small and soft, passing flatus. Tolerating limited clears without nausea or vomiting Objective Vital Signs - Last 8 Hours Temp Pulse Resp BP Pulse Ox 12/06/17 07:11 99.0 F 81 14 136/88 95 12/06/17 03:15 99.1 F 87 15 148/76 96 Intake and Output 12/05/17 12/06/17 12/06/17 23:59 07:59 15:59 Intake Total 100 / 100 410 / 410 674 / 674 Output Total 450 / 450 550 / 550 350 / 350 Balance -350 / -350 -140 / -140 324 / 324 Intake: IV Fluids 100 / 100 350 / 350 674 / 674 Lactated Ringers 1,000 ML @ 25 674 / 674 mls/hr IVC .Q24H [facility] Rx#: [id number] Intralipid 20% 250 ML @ 21 mls/ 250 / 250 hr IVPB DAILY@1700 RE[facility] Rx#: [id number] Zosyn 3.375 GM In 0.9 % Sodium 100 / 100 100 / 100 Chloride (Mini-Bag +) 100 ML @ 25 mls/hr IVPB Q8H [facility] Rx#: [id number] Oral 0 / 0 60 / 60 Output: Urine 450 / 450 550 / 550 350 / 350 Other: Stool Size Smear Small Stool Consistency formed formed Stool Characteristics Normal for Patient Stool Color Brown # Bowel Movements 0 0 Weight 66.9 kg Blood Glucose* 155 160 Patient Weight 12/06/17 23:59 Weight 66.9 kg - General physical appearance well developed, no distress, no pain - Eyes normal ocular movement - ENT normal mucosa, atraumatic, normocephalic - Neck Neck exam: trachea midline, no venous distension - Respiratory normal expansion, normal respiratory effort - Cardiovascular Cardiovascular exam: Present: RRR - Abdomen Abdomen: Present: bowel sounds present, soft, tender (mild post surgical tenderness) - Incision Incision: Present: clean and dry, intact (surgical susan present and intact) - Integumentary no rash - Neurologic CN 2-12 grossly intact - Musculoskeletal normal posture - Psychiatric oriented to time, oriented to place, speech is normal, memory intact - Labs 12/05/17 04:00 12/06/17 04:50 Diabetes panel 12/06/17 Range/Units 04:50 Sodium 141 (136-145) mEq/L Potassium 3.6 (3.5-5.1) mEq/L Chloride 107 (98-107) mEq/L Carbon Dioxide 27 (23-29) mEq/L BUN 19 (8-23) mg/dL Creatinine 0.72 (0.60-1.20) mg/dL Glucose 107 H (70-105) mg/dL Calcium 9.1 (8.6-10.3) mg/dL Calcium panel 12/06/17 Range/Units 04:50 Calcium 9.1 (8.6-10.3) mg/dL Phosphorus 2.8 (2.7-4.5) mg/dL Pituitary panel 12/06/17 Range/Units 04:50 Sodium 141 (136-145) mEq/L Potassium 3.6 (3.5-5.1) mEq/L Chloride 107 (98-107) mEq/L Carbon Dioxide 27 (23-29) mEq/L BUN 19 (8-23) mg/dL Creatinine 0.72 (0.60-1.20) mg/dL Glucose 107 H (70-105) mg/dL Calcium 9.1 (8.6-10.3) mg/dL Adrenal panel 12/06/17 Range/Units 04:50 Sodium 141 (136-145) mEq/L Potassium 3.6 (3.5-5.1) mEq/L Chloride 107 (98-107) mEq/L Carbon Dioxide 27 (23-29) mEq/L BUN 19 (8-23) mg/dL Creatinine 0.72 (0.60-1.20) mg/dL Glucose 107 H (70-105) mg/dL Calcium 9.1 (8.6-10.3) mg/dL Consult Discharge Plan - Plan Referrals: NONE,PCP [Primary Care Provider] - <Camron Barger - Last Filed: 12/06/17 10:41> Date of Encounter: 12/06/17 Objective Vital Signs - Last 8 Hours Temp Pulse Resp BP Pulse Ox 12/06/17 07:11 99.0 F 81 14 136/88 95 12/06/17 03:15 99.1 F 87 15 148/76 96 Intake and Output 12/05/17 12/06/17 12/06/17 23:59 07:59 15:59 Intake Total 100 / 100 410 / 410 674 / 674 Output Total 450 / 450 550 / 550 650 / 650 Balance -350 / -350 -140 / -140 24 / 24 Intake: IV Fluids 100 / 100 350 / 350 674 / 674 Lactated Ringers 1,000 ML @ 25 674 / 674 mls/hr IVC .Q24H [facility] Rx#: [id number] Intralipid 20% 250 ML @ 21 mls/ 250 / 250 hr IVPB DAILY@1700 [facility] Rx#: [id number] Zosyn 3.375 GM In 0.9 % Sodium 100 / 100 100 / 100 Chloride (Mini-Bag +) 100 ML @ 25 mls/hr IVPB Q8H [facility] Rx#: [id number] Oral 0 / 0 60 / 60 Output: Urine 450 / 450 550 / 550 650 / 650 Other: Meal NPO BREAKFAST Stool Size Smear Small Stool Consistency formed formed Stool Characteristics Normal for Patient Stool Color Brown # Bowel Movements 0 0 Weight 66.9 kg Blood Glucose* 155 160 Patient Weight 12/06/17 23:59 Weight 66.9 kg - Labs 12/05/17 04:00 12/06/17 04:50 Diabetes panel 12/06/17 Range/Units 04:50 Sodium 141 (136-145) mEq/L Potassium 3.6 (3.5-5.1) mEq/L Chloride 107 (98-107) mEq/L Carbon Dioxide 27 (23-29) mEq/L BUN 19 (8-23) mg/dL Creatinine 0.72 (0.60-1.20) mg/dL Glucose 107 H (70-105) mg/dL Calcium 9.1 (8.6-10.3) mg/dL Calcium panel 12/06/17 Range/Units 04:50 Calcium 9.1 (8.6-10.3) mg/dL Phosphorus 2.8 (2.7-4.5) mg/dL Pituitary panel 12/06/17 Range/Units 04:50 Sodium 141 (136-145) mEq/L Potassium 3.6 (3.5-5.1) mEq/L Chloride 107 (98-107) mEq/L Carbon Dioxide 27 (23-29) mEq/L BUN 19 (8-23) mg/dL Creatinine 0.72 (0.60-1.20) mg/dL Glucose 107 H (70-105) mg/dL Calcium 9.1 (8.6-10.3) mg/dL Adrenal panel 12/06/17 Range/Units 04:50 Sodium 141 (136-145) mEq/L Potassium 3.6 (3.5-5.1) mEq/L Chloride 107 (98-107) mEq/L Carbon Dioxide 27 (23-29) mEq/L BUN 19 (8-23) mg/dL Creatinine 0.72 (0.60-1.20) mg/dL Glucose 107 H (70-105) mg/dL Calcium 9.1 (8.6-10.3) mg/dL - Attending Attestation patient see and examind. i have reviewed all labs, imaging, and notes. i agree with the above assessment and plan and wish to add the following... 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
[2017-12-06 10:39] LABS: Basophils % 0.4 %; Eosinophils # 0.8 K/mcL (0.0-0.6); Eosinophils % 7.7 %; Hematocrit 23.3 % (35.3-44.9); Hemoglobin 7.6 g/dL (11.5-15.4); Immature Granulocytes % 0.4 % (0-4); Lymphocytes # 1.9 K/mcL (0.6-4.6); Lymphocytes % 19.3 %; Mean Corpuscular HGB Conc 32.6 g/dL (31.6-35.5); Mean Corpuscular Hemoglobin 31.1 pg (28.0-33.3); Mean Corpuscular Volume 95.5 fL (83.0-100.0); Mean Platelet Volume 11.8 fL (9.4-12.4); Monocytes # 0.5 K/mcL (0.0-1.3); Monocytes % 5.4 %; Neutrophils # 6.5 K/mcL (1.6-8.9); Platelet Count 206 K/mcL (140-400); Red Blood Count 2.44 M/mcL (3.82-4.97); Red Cell Distribution Width 13.6 % (11.5-14.5); Segmented Neutrophils % 66.8 %
--- NOTE | 2017-12-06 14:23 | Internal Med Progress Note ---
Hospitalist Progress Note - Encounter Date of Encounter: 12/06/17 Time of Encounter: 14:21 - Subjective Interval History: PSeen and evaluated at bedside. Patient reports having a BM today, denies abdominal pain, nausea, vomiting. SOB, fever or chills. Started on a clear liquid diet. - Exam Vitals: Temp Pulse Resp BP Pulse Ox 98.1 F 78 14 139/71 98 12/06/17 11:36 12/06/17 11:36 12/06/17 11:36 12/06/17 11:36 12/06/17 11:36 Exam: General: Alert and oriented 4. No acute distress. Cardiovascular: RRR, Normal S1 & S2, no rubs, murmurs or gallops. JVD about 6cm. Lungs: Clear to auscultation bilaterally, no wheezes or crackles. Abdomen: Soft, non-tender, no rigidity. NABS in all 4 quadrants. Surgical dressing in the mid umbilical area is clean and intact. Extremities: no edema or tenderness. Neurological: Normal cognition. CN II-XII intact. Rest of the physical exam is non contributory - Assessment and Plan (1) Small bowel obstruction Current Visit: Yes Status: Acute Assessment and Plan: POD #4 s/p exploratory laparotomy, 150 cm small bowel resection with Dr. Laureano . Patient had a BM today. Plan On a clear liquid diet as per surgery recommendations Pain control with hydromoprhone 1mg Continue pantoprazole 40mg/IV daily Continue TPN for nutrition support Will continue to follow surgery recommendations (2) Ischemic necrosis of small bowel Current Visit: Yes Status: Resolved Assessment and Plan: WBC within WNL. AFebrile. POD #4 s/p exploratory laparotomy, 150 cm small bowel resection with Dr. Laureano 12/02/2017 Plan Continue IV antibiotics (3) Sepsis Current Visit: Yes Status: Resolved Assessment and Plan: Sepsis has resolved. (4) Hyperlipidemia Current Visit: Yes Status: Chronic Assessment and Plan: Hold statin. Will resume when patient is back on a diet. (5) DVT prophylaxis Current Visit: Yes Status: Acute Assessment and Plan: Mechanical DVT prophylaxis with intermittent mechanical compression (6) HTN (hypertension) Current Visit: No Status: Chronic Assessment and Plan: BP Well controlled on PRN antihypertensive medications. Patient is not on antihypertensive medications in the the outpatient setting. Will continue to monitor. (7) History of gastric bypass Current Visit: No Status: Chronic (8) Obstructive sleep apnea Current Visit: Yes Status: Chronic (9) Pancreatic duct dilated Current Visit: Yes Status: Acute Assessment and Plan: Possible MRCP. As per GI note when patient more stable. As patient clinical condition has improved, will inform GI. (10) Anemia Current Visit: Yes Status: Acute Assessment and Plan: H&H remains stable 7.6 for th past 48 hours. No signs of active bleeding. Will continue to monitor. will consider transfusing if Hb<7, Hct 23 or patient becomes symptomatic. - Summary of Assessment and Plan Summary of Assessment and Plan: Patient to remain hospitalized. ON clear liquid diet. Small bowel obstruction s/ p resection exploratory laparotomy. - Time Spent with Patient Total time spent is greater than 50% in coordination of care (as documented) at patient's floor/unit and/or counseling patient: Greater than 35 minutes Plan of Care Discussed with: patient (the nurse.) Internal Medicine: Result - Labs CBC & Chem 7: 12/06/17 09:29 12/06/17 04:50 Labs: Short CBC 12/06/17 Range/Units 09:29 WBC 9.8 (4.3-11.1) K/mcL Hgb 7.6 L (11.5-15.4) g/dL Hct 23.3 L (35.3-44.9) % Plt Count 206 (140-400) K/mcL Neutrophils # 6.5 (1.6-8.9) K/mcL BMP 12/06/17 04:50 Sodium 141 Potassium 3.6 Chloride 107 Carbon Dioxide 27 BUN 19 Creatinine 0.72 Glucose 107 H Calcium 9.1 - ABG Interpretation ABG results: ABG ABG pH 7.32 pH Units (7.32-7.45) 12/03/17 04:28 ABG pCO2 43 mmHg (35-45) 12/03/17 04:28 ABG pO2 83 mmHg (85-104) L 12/03/17 04:28 ABG O2 Saturation 95 % (95-98) 12/03/17 04:28 PT/INR, D-dimer PT 12.0 Seconds (9.4-12.1) 12/02/17 07:20 Consult Discharge Plan - Plan Referrals: NONE,PCP [Primary Care Provider] - (3) Sepsis Qualifiers: Sepsis type: sepsis due to unspecified organism Qualified Code(s): A41.9 - Sepsis, unspecified organism (4) Hyperlipidemia Qualifiers: Hyperlipidemia type: unspecified Qualified Code(s): E78.5 - Hyperlipidemia, unspecified (6) HTN (hypertension) Qualifiers: Hypertension type: essential hypertension Qualified Code(s): I10 - Essential (primary) hypertension (10) Anemia Qualifiers: Anemia type: unspecified type Qualified Code(s): D64.9 - Anemia, unspecified
[2017-12-06] MEDS ORDERED: Clinimix E 5%-15% SOLUTION 2,000 ML with MVI, adult with vitamin K 10 ML IVC SCH (17:00)
[2017-12-06] MEDS: *HR* OxyCODONE/APAP 5/325 TABLET PO PRN (20:08)
[2017-12-07] MEDS: Piperacillin/Tazobactam 3.375 GM in 0.9 % Sodium Chloride Mini Bag 100 ML IVPB SCH ×2 (03:00→08:48)
[2017-12-07 03:31] LABS: BUN/Creatinine Ratio 32 (6-26); Blood Urea Nitrogen 22 mg/dL (8-23); Calcium 8.9 mg/dL (8.6-10.3); Carbon Dioxide 27 mEq/L (23-29); Chloride 108 mEq/L (98-107); Glucose 108 mg/dL (70-105); Osmolality,Calculated 292 (280-300); Phosphorous 3.1 mg/dL (2.7-4.5); Potassium 3.4 mEq/L (3.5-5.1); Sodium 139 mEq/L (136-145); eGFR For Non-African Americans > 60 (> 60)
[2017-12-07] MEDS: *HR* Heparin 5,000 UNIT/ML VIAL SQ SCH ×3 (05:32→22:14)
[2017-12-07] MEDS: *HR* Metoprolol 5 MG/5 ML VIAL IVP SCH ×4 (05:32→23:40)
[2017-12-07] MEDS: Pantoprazole 40 MG VIAL IVP SCH (08:48)
--- NOTE | 2017-12-07 09:25 | General Surgery Progress Note ---
<Sydney Brown - Last Filed: 12/07/17 12:09> Date of Encounter: 12/07/17 Time of Encounter: 09:23 - Assessment and Plan (1) Small bowel obstruction Current Visit: Yes Status: Acute POD 5 exploratory laparotomy w partial small bowel resection - WBC wnl 9.8 from 14.4 - patient improving and may advance diet to softs - wean TPN tomorrow per nutrition - okay to discharge from surgical point of view - f/u out patient with Anabelle Sever - scripts on discharge should include Percocet 5 PRN q6hr, Ibuprofen 800 mg q8hr , Colace 100 mg BID, Zofran 4 mg q 6hr PRN (2) Ischemic necrosis of small bowel Current Visit: Yes Status: Resolved see above (3) Acute blood loss anemia Current Visit: Yes Status: Acute Hgb 7.6 stable from yesterday (4) DVT prophylaxis Current Visit: Yes Status: Acute heparin Subjective Patient reports: feels better, tolerating liquids well, flatus, bowel movement, afebrile Objective Vital Signs - Last 8 Hours Temp Pulse Resp BP Pulse Ox 12/07/17 07:36 97.8 F 77 17 137/79 94 12/07/17 03:50 98.3 F 73 15 137/84 96 Intake and Output 12/06/17 12/07/17 12/07/17 23:59 07:59 15:59 Intake Total 2135 / 2136 100 / 100 Output Total 200 / 200 300 / 300 Balance 1935 / 193 -200 / -200 Intake: IV Fluids 189 / 189 100 / 100 Clinimix E 5%-15% SOLUTION 2, 1696 / 169 000 ML @ 70 mls/hr IVC .Q24H [facility] with M.v.i. Adult 10 ml Rx# :[id number] Zosyn 3.375 GM In 0.9 % Sodium 200 / 200 100 / 100 Chloride (Mini-Bag +) 100 ML @ 25 mls/hr IVPB Q8H [facility] Rx#: [id number] Oral 240 / 240 Output: Urine 200 / 200 300 / 300 Other: Meal Dinner Stool Size Small Moderate Stool Consistency loose formed loose liquid soft Stool Color Brown Brown # Voids 1 1 # Bowel Movements 0 1 1 Blood Glucose* 129 122 - General physical appearance well developed, no pain - ENT normal pinna, normal nares, normal mucosa, no hearing loss - Respiratory normal expansion, normal respiratory effort wheezing: bilateral - Cardiovascular Cardiovascular exam: Present: RRR. Absent: murmurs, rubs - Abdomen Abdomen: Present: bowel sounds present, soft, tender, wound. Absent: organomegaly, guarding Abdominal Tenderness: diffusely - Incision Incision: Present: clean and dry, intact, approximated. Absent: draining, erythema - Neurologic normal coordination, normal sensation - Musculoskeletal normal gait, normal posture - Psychiatric oriented to time, oriented to person, oriented to place, speech is normal, memory intact - Labs 12/06/17 09:29 12/07/17 03:00 Diabetes panel 12/07/17 Range/Units 03:00 Sodium 139 (136-145) mEq/L Potassium 3.4 L (3.5-5.1) mEq/L Chloride 108 H (98-107) mEq/L Carbon Dioxide 27 (23-29) mEq/L BUN 22 (8-23) mg/dL Creatinine 0.69 (0.60-1.20) mg/dL Glucose 108 H (70-105) mg/dL Calcium 8.9 (8.6-10.3) mg/dL Calcium panel 12/07/17 Range/Units 03:00 Calcium 8.9 (8.6-10.3) mg/dL Phosphorus 3.1 (2.7-4.5) mg/dL Pituitary panel 12/07/17 Range/Units 03:00 Sodium 139 (136-145) mEq/L Potassium 3.4 L (3.5-5.1) mEq/L Chloride 108 H (98-107) mEq/L Carbon Dioxide 27 (23-29) mEq/L BUN 22 (8-23) mg/dL Creatinine 0.69 (0.60-1.20) mg/dL Glucose 108 H (70-105) mg/dL Calcium 8.9 (8.6-10.3) mg/dL Adrenal panel 12/07/17 Range/Units 03:00 Sodium 139 (136-145) mEq/L Potassium 3.4 L (3.5-5.1) mEq/L Chloride 108 H (98-107) mEq/L Carbon Dioxide 27 (23-29) mEq/L BUN 22 (8-23) mg/dL Creatinine 0.69 (0.60-1.20) mg/dL Glucose 108 H (70-105) mg/dL Calcium 8.9 (8.6-10.3) mg/dL Consult Discharge Plan - Plan Instructions: Colectomy (DC) Additional Instructions: General Surgical Discharge Instructions 1. No pushing, pulling, or lifting greater than 15 lbs for 2-4 weeks (depending upon procedure). 2. You may shower beginning today, but no tub baths, soaking, or swimming for 2 weeks. 3. You may resume driving when you are off narcotics and are safe to react in a car. 4. Take ibuprofen every 8 hours for discomfort. If this does not relieve discomfort, you may take the as needed Percocet. Take narcotics as directed. Do not take more narcotics then directed and do not share your narcotics with any other person. Do not drink alcohol while on narcotics. 5. Take stool softeners (Colace) or a water based laxative (Miralax) while taking narcotics. You may hold for loose stools. 6. Report any fevers greater than 100.5F, increase abdominal discomfort, drainage that looks like pus, increased redness or pain at the surgical site, or any vomiting. 7. Report any pain in the calves, shortness of breath, or rapid heartbeat. 8. Follow-up in the office as directed. 9. If you were prescribed antibiotics, do not stop them without talking to your provider. Wound Care: Remove dressing . Shower/Wash with antibacterial soap. May leave incisions open to air or cover with a dry dressing for comfort Referrals: NONE,PCP [Primary Care Provider] - Kaycee Kwok MANAGER [employer]BILE [Advanced Practice Nurse] - 12/21/17 1:00 pm Prescriptions: Ondansetron HCl [Zofran] 4 mg PO Q6HR PRN #14 tab PRN Reason: Nausea OxyCODONE/APAP 5/325 [Percocet 5/325 MG] 1 each PO Q6HR PRN 7 Days #28 tablet PRN Reason: Pain Ibuprofen 800 mg PO Q8HR #42 tablet Docusate [Colace] 100 mg PO BID #30 capsule <Prem Laureano - Last Filed: 12/07/17 13:22> Date of Encounter: 12/07/17 Objective Vital Signs - Last 8 Hours Temp Pulse Resp BP Pulse Ox 12/07/17 11:55 98.2 F 75 17 114/76 95 12/07/17 07:36 97.8 F 77 17 137/79 94 Intake and Output 12/06/17 12/07/17 12/07/17 23:59 07:59 15:59 Intake Total 2135 100 / 100 120 / 120 Output Total 200 / 200 300 / 300 Balance 193 / 193 -200 / -200 120 / 120 Intake: IV Fluids 1895 100 / 100 Clinimix E 5%-15% SOLUTION 2, 169 / 169 000 ML @ 70 mls/hr IVC .Q24H [facility] with M.v.i. Adult 10 ml Rx# :[id number] Zosyn 3.375 GM In 0.9 % Sodium 200 / 200 100 / 100 Chloride (Mini-Bag +) 100 ML @ 25 mls/hr IVPB Q8H [facility] Rx#: [id number] Oral 240 / 240 120 / 120 Output: Urine 200 / 200 300 / 300 Other: Meal Dinner Breakfast Percent of Meal Consumed 10% Stool Size Small Moderate Stool Consistency loose formed loose liquid soft Stool Color Brown Brown # Voids 1 1 # Bowel Movements 0 1 1 Blood Glucose* 129 122 91 - Labs 12/06/17 09:29 12/07/17 03:00 Diabetes panel 12/07/17 Range/Units 03:00 Sodium 139 (136-145) mEq/L Potassium 3.4 L (3.5-5.1) mEq/L Chloride 108 H (98-107) mEq/L Carbon Dioxide 27 (23-29) mEq/L BUN 22 (8-23) mg/dL Creatinine 0.69 (0.60-1.20) mg/dL Glucose 108 H (70-105) mg/dL Calcium 8.9 (8.6-10.3) mg/dL Calcium panel 12/07/17 Range/Units 03:00 Calcium 8.9 (8.6-10.3) mg/dL Phosphorus 3.1 (2.7-4.5) mg/dL Pituitary panel 12/07/17 Range/Units 03:00 Sodium 139 (136-145) mEq/L Potassium 3.4 L (3.5-5.1) mEq/L Chloride 108 H (98-107) mEq/L Carbon Dioxide 27 (23-29) mEq/L BUN 22 (8-23) mg/dL Creatinine 0.69 (0.60-1.20) mg/dL Glucose 108 H (70-105) mg/dL Calcium 8.9 (8.6-10.3) mg/dL Adrenal panel 12/07/17 Range/Units 03:00 Sodium 139 (136-145) mEq/L Potassium 3.4 L (3.5-5.1) mEq/L Chloride 108 H (98-107) mEq/L Carbon Dioxide 27 (23-29) mEq/L BUN 22 (8-23) mg/dL Creatinine 0.69 (0.60-1.20) mg/dL Glucose 108 H (70-105) mg/dL Calcium 8.9 (8.6-10.3) mg/dL - Attending Attestation I have personally performed a face to face evaluation on this patient. I have reviewed and agree with the care plan. History and Exam by me shows: The patient is seen and evaluated. She is ready for discharge. I will follow her as an outpatient clinic. She has made it miraculous recovery Prem Laureano MD FACS
--- NOTE | 2017-12-07 15:17 | Internal Med Progress Note ---
Hospitalist Progress Note - Encounter Date of Encounter: 12/07/17 Time of Encounter: 15:14 - Subjective Interval History: Seen and evaluated at bedside. patient tolerating Oral, soft diet. denies abdominal pain, nausea or vomiting. - Exam Vitals: Temp Pulse Resp BP Pulse Ox 98.2 F 75 17 114/76 95 12/07/17 11:55 12/07/17 11:55 12/07/17 11:55 12/07/17 11:55 12/07/17 11:55 Exam: General: Alert and oriented 4. No acute distress. Cardiovascular: RRR, Normal S1 & S2, no rubs, murmurs or gallops. JVD about 6cm. Lungs: Clear to auscultation bilaterally, no wheezes or crackles. Abdomen: Soft, non-tender, no rigidity. NABS in all 4 quadrants. Extremities: no edema. Strength is 5/5 in the upper and lower extremities. Neurological: Normal cognition. CN II-XII intact. Rest of the physical exam is non contributory - Assessment and Plan (1) Small bowel obstruction Current Visit: Yes Status: Acute Assessment and Plan: POD #4 s/p exploratory laparotomy, 150 cm small bowel resection with Dr. Laureano . Patient had a BM today. Plan Started on soft diet as per surgery recommendations On percocet 5/325mg/PO 1 tb Q6HR PRN for pain Change PPI to PO plan to titrate off TPN until today and tomorrow morning for discharge as per surgery recommendations. Possible discharge tomorrow. (2) Ischemic necrosis of small bowel Current Visit: Yes Status: Resolved Assessment and Plan: Patient has received 6 days of IV antibiotics. D/C piperacillin/Tazobactam and start levofloxacin plus metronidazole for discharge planning. patient should complete 10-14 days of antibiotics coverage. (3) Hyperlipidemia Current Visit: Yes Status: Chronic Assessment and Plan: Will resume patient home statin. (4) DVT prophylaxis Current Visit: Yes Status: Acute Assessment and Plan: Patient is on heparin 5000 units subcutaneous every 8 hours for DVT prophylaxis. (5) HTN (hypertension) Current Visit: No Status: Chronic Assessment and Plan: BP has been controlled off antihypertensive medications. Will continue to monitor and will add antihypertensive medications if needed. (6) History of gastric bypass Current Visit: No Status: Chronic (7) Obstructive sleep apnea Current Visit: Yes Status: Chronic (8) Pancreatic duct dilated Current Visit: Yes Status: Acute Assessment and Plan: Called GI first line production supervisor. They will order the MRCP today and reevaluate. Will continue to follow GI recommendations. (9) Anemia Current Visit: Yes Status: Acute Assessment and Plan: H&H remains stable. Will consider transfusing if Hb <7, Hct <23 or patient becomes symptomatic. (10) Hypokalemia Current Visit: Yes Status: Acute Assessment and Plan: Possible due to GI loss. Electrolyte has been replaced. - Summary of Assessment and Plan Summary of Assessment and Plan: Potential discharge tomorrow. Patient started on a diet and being weaned off TPN today. - Time Spent with Patient Total time spent is greater than 50% in coordination of care (as documented) at patient's floor/unit and/or counseling patient: Greater than 35 minutes Plan of Care Discussed with: patient (the nurse.) Internal Medicine: Result - Labs CBC & Chem 7: 12/06/17 09:29 12/07/17 03:00 Labs: BMP 12/07/17 03:00 Sodium 139 Potassium 3.4 L Chloride 108 H Carbon Dioxide 27 BUN 22 Creatinine 0.69 Glucose 108 H Calcium 8.9 - ABG Interpretation ABG results: ABG ABG pH 7.32 pH Units (7.32-7.45) 12/03/17 04:28 ABG pCO2 43 mmHg (35-45) 12/03/17 04:28 ABG pO2 83 mmHg (85-104) L 12/03/17 04:28 ABG O2 Saturation 95 % (95-98) 12/03/17 04:28 PT/INR, D-dimer PT 12.0 Seconds (9.4-12.1) 12/02/17 07:20 Consult Discharge Plan - Plan Instructions: Colectomy (DC) Additional Instructions: General Surgical Discharge Instructions 1. No pushing, pulling, or lifting greater than 15 lbs for 2-4 weeks (depending upon procedure). 2. You may shower beginning today, but no tub baths, soaking, or swimming for 2 weeks. 3. You may resume driving when you are off narcotics and are safe to react in a car. 4. Take ibuprofen every 8 hours for discomfort. If this does not relieve discomfort, you may take the as needed Percocet. Take narcotics as directed. Do not take more narcotics then directed and do not share your narcotics with any other person. Do not drink alcohol while on narcotics. 5. Take stool softeners (Colace) or a water based laxative (Miralax) while taking narcotics. You may hold for loose stools. 6. Report any fevers greater than 100.5F, increase abdominal discomfort, drainage that looks like pus, increased redness or pain at the surgical site, or any vomiting. 7. Report any pain in the calves, shortness of breath, or rapid heartbeat. 8. Follow-up in the office as directed. 9. If you were prescribed antibiotics, do not stop them without talking to your provider. Wound Care: Remove dressing . Shower/Wash with antibacterial soap. May leave incisions open to air or cover with a dry dressing for comfort Referrals: Kaycee Kwok ACUTE SPECIALIST [Advanced Practice Nurse] - 12/21/17 1:00 pm NONE,PCP [Primary Care Provider] - Prescriptions: Ondansetron HCl [Zofran] 4 mg PO Q6HR PRN #14 tab PRN Reason: Nausea OxyCODONE/APAP 5/325 [Percocet 5/325 MG] 1 each PO Q6HR PRN 7 Days #28 tablet PRN Reason: Pain Ibuprofen 800 mg PO Q8HR #42 tablet Docusate [Colace] 100 mg PO BID #30 capsule (3) Hyperlipidemia Qualifiers: Hyperlipidemia type: unspecified Qualified Code(s): E78.5 - Hyperlipidemia, unspecified (5) HTN (hypertension) Qualifiers: Hypertension type: essential hypertension Qualified Code(s): I10 - Essential (primary) hypertension (9) Anemia Qualifiers: Anemia type: unspecified type Qualified Code(s): D64.9 - Anemia, unspecified
[2017-12-07] MEDS ORDERED: Clinimix E 5%-15% SOLUTION 2,000 ML with MVI, adult with vitamin K 10 ML IVC SCH (17:00)
[2017-12-07] MEDS: metroNIDAZOLE 500 MG TABLET PO SCH (19:58)
[2017-12-07] MEDS: *HR* OxyCODONE/APAP 5/325 TABLET PO PRN (22:14)
[2017-12-08] MEDS: *HR* Metoprolol 5 MG/5 ML VIAL IVP SCH ×2 (05:19→10:11)
[2017-12-08] MEDS: *HR* Heparin 5,000 UNIT/ML VIAL SQ SCH (05:19)
[2017-12-08 05:56] LABS: Hematocrit 24.4 % (35.3-44.9); Hemoglobin 8.2 g/dL (11.5-15.4); Mean Corpuscular HGB Conc 33.6 g/dL (31.6-35.5); Mean Corpuscular Volume 95.3 fL (83.0-100.0); Mean Platelet Volume 11.4 fL (9.4-12.4); Platelet Count 250 K/mcL (140-400); Red Blood Count 2.56 M/mcL (3.82-4.97); Red Cell Distribution Width 13.2 % (11.5-14.5)
[2017-12-08 06:26] LABS: BUN/Creatinine Ratio 30 (6-26); Blood Urea Nitrogen 22 mg/dL (8-23); Carbon Dioxide 24 mEq/L (23-29); Chloride 107 mEq/L (98-107); Glucose 105 mg/dL (70-105); Magnesium 2.1 mg/dL (1.6-2.6); Osmolality,Calculated 292 (280-300); Phosphorous 3.6 mg/dL (2.7-4.5); Potassium 3.7 mEq/L (3.5-5.1); Sodium 139 mEq/L (136-145); eGFR For Non-African Americans > 60 (> 60)
[2017-12-08] MEDS ORDERED: levoFLOXacin 750 MG TABLET PO SCH (09:00)
[2017-12-08] MEDS: metroNIDAZOLE 500 MG TABLET PO SCH (09:10)
[2017-12-08 11:22] VITALS: BP 111/60
--- NOTE | 2017-12-08 12:09 | Discharge Summary ---
Date of Encounter: 12/08/17 Time of Encounter: 12:00 - Discharge Diagnosis (1) Small bowel obstruction Priority: Primary Status: Acute Assessment and Plan: 72 year old female hx gastric sleeve presented to [facility] for abdominal pain. Onset at 5 pm at eating hamburger a [employer] followed by one episode of vomiting. She had bowel movement his morning that was hard but no red blood, white mucus or dark tarry. She was able to tolerate breakfast this morning with out difficulty. Associated symptoms low back pain. In [facility] ED, found to have irregular heart rhythm with HR 66, BP 182/83 RR 17 , 100% RA. CT of abdomen and pelvis obtained from [facility] showing a closed loop small bowel obstruction and pancreatic duct dilatation. At that time she was found to have an elevated white count of 17.9. Subsequently she was sent to [facility] for further treatment evaluation and likely surgical intervention. She was assessed with a closed loop small bowel obstruction and was seen by the surgery team. She underwent an exploratory laparatomy on 12/02 and had a small bowel resection. She was transferred to the ICU post procedure, and was managed for spetic shock for which she got pressors, antibiotics and albumin. She was successfully extubated, and was transferred to the floor on 12/06. She has been stable post op. She was on TPN which was gradually titrated off. She was noted to have pancreatic ductal dilation on CT scan and was supposed to get an MRCP once she was stable post surgery but patient refused on the basis of claustrophobia. She will follow up with GI as an outpatient. She will also complete a course of antibiotics outpatient. 35minutes was spent discharging this patient (2) Obstructive sleep apnea Priority: Primary Status: Chronic (3) Hyperlipidemia Priority: Primary Status: Chronic Qualifiers: Hyperlipidemia type: unspecified Qualified Code(s): E78.5 - Hyperlipidemia , unspecified (4) DVT prophylaxis Priority: Secondary Status: Acute (5) Pancreatic duct dilated Priority: Secondary Status: Acute (6) HTN (hypertension) Priority: Secondary Status: Chronic Qualifiers: Hypertension type: essential hypertension Qualified Code(s): I10 - Essential (primary) hypertension (7) Ischemic necrosis of small bowel Priority: Primary Status: Resolved (8) History of gastric bypass Priority: Primary Status: Chronic (9) Anemia Priority: Primary Status: Acute Qualifiers: Anemia type: unspecified type Qualified Code(s): D64.9 - Anemia, unspecified (10) Hypokalemia Priority: Primary Status: Acute Hospital course: Ms. Baltazar is a 72 year old female - Time Spent with Patient Total time spent providing and/or coordinating discharge services: - Discharge Medications Prescriptions: Ondansetron HCl [Zofran] 4 mg PO Q6HR PRN #14 tab PRN Reason: Nausea OxyCODONE/APAP 5/325 [Percocet 5/325 MG] 1 each PO Q6HR PRN 7 Days #28 tablet PRN Reason: Pain Ibuprofen 800 mg PO Q8HR #42 tablet Docusate [Colace] 100 mg PO BID #30 capsule levoFLOXacin [Levaquin] 750 mg PO DAILY 7 Days #7 tablet metroNIDAZOLE [Flagyl] 500 mg PO BID 7 Days #14 tablet Home Medications: Albuterol Sulfate [Ventolin Hfa] 2 puff IH AD 12/02/17 [History] Atorvastatin [Lipitor] 10 mg PO HS 12/02/17 [History] Calcium Citrate 500 mg PO DAILY 12/02/17 [History] Cholecalciferol (D-3) [Vitamin D] 15,000 unit PO QWEEK 12/02/17 [History] Cyanocobalamin (Vitamin B-12) [Vitamin B-12] 1,000 mcg PO DAILY 12/02/17 [ History] Ferrous Sulfate 0.5 tab PO DAILY 12/02/17 [History] Fluticasone/Salmeterol [Advair 250-50 Diskus] 1 puff IH AD 12/02/17 [History] Multivitamin [One Daily Multivitamin] 1 tab PO DAILY 12/02/17 [History] Docusate [Colace] 100 mg PO BID #30 capsule 12/07/17 [Rx] Ibuprofen 800 mg PO Q8HR #42 tablet 12/07/17 [Rx] Ondansetron HCl [Zofran] 4 mg PO Q6HR PRN #14 tab 12/07/17 [Rx] OxyCODONE/APAP 5/325 [Percocet 5/325 MG] 1 each PO Q6HR PRN 7 Days #28 tablet [Rx] levoFLOXacin [Levaquin] 750 mg PO DAILY 7 Days #7 tablet 12/08/17 [Rx] metroNIDAZOLE [Flagyl] 500 mg PO BID 7 Days #14 tablet 12/08/17 [Rx] Allergies/Adverse Reactions: 3 Allergy/AdvReac Type Severity Reaction Status Date / Time No Known Allergies Allergy Verified 12/02/17 08:30 Date of admission: 12/02/17 16:47 Primary care physician: PCP NONE Consults: 12/02/17 05:58 Consult to Surgery [CONS] Routine Consulting Provider: [facility] Reason for Consult: SBO- call completed by [facility] bere transfer Call Completed: No 12/02/17 06:25 Consult to Gastroenterology [CONS] Routine Consulting Provider: [facility] Reason for Consult: dilated pancreated duct without obvious cause, may need MRCP per radioloy rec Call Completed: No 12/02/17 17:07 Consult to Critical Care [CONS] Stat Consulting Provider: [facility] Reason for Consult: sepsis Time Notified: 16:20 Call Completed: Yes 12/03/17 08:31 Consult to Nutrition [CONS] Routine Comment: small bowel resection Consulting Provider: NUTRITION Reason for Dietary Consult: PO Supplementation TPN Start and Manage Other:: Likely require dietary recs, may develop shortgut Consult to Occupational Therapy [CONS] Routine Comment: Evaluate, develop and implement POC Reason for Consult: OT for mobilization and discharge planning Does patient have active BEDREST order?: No Is patient medically & hemodynamically stable?: Yes Consult to Physical Therapy [CONS] Routine Comment: Evaluate, develop and implement POC Reason for Consult: PT for mobilization and discharge planning Does patient have active BEDREST order?: No Is patient medically & hemodynamically stable?: Yes 12/04/17 09:19 Consult to Invasive Line Access Team [CONS] Routine Reason for Consult: Picc Line Insertion Line Type: PICC PICC line indications: Parental nutrition - Constitutional Vitals: Temp Pulse Resp BP Pulse Ox 97.6 F 97 18 111/60 98 12/08/17 11:19 12/08/17 11:19 12/08/17 11:19 12/08/17 11:19 12/08/17 11:19 General appearance: Present: mild distress, A&O X 3, answers questions appropriately Exam: General: Alert and oriented 4. No acute distress. Cardiovascular: RRR, Normal S1 & S2, no rubs, murmurs or gallops. JVD about 6cm. Lungs: Clear to auscultation bilaterally, no wheezes or crackles. Abdomen: Soft, non-tender, no rigidity. NABS in all 4 quadrants. Extremities: no edema. Strength is 5/5 in the upper and lower extremities. Neurological: Normal cognition. CN II-XII intact. Rest of the physical exam is non contributory - Head Head exam: Present: atraumatic, normocephalic - Eye Eye exam: Present: PERRL, conjuntiva pink, sclera anicteric Pupils: Present: PERRL - Neck Neck exam general surgery: Present: supple, trachea midline. Absent: lymphadenopathy - Respiratory Respiratory exam: Present: CTAB. Absent: accessory muscle use, rales, rhonchi, wheezes - Cardiovascular Cardiovascular exam: Present: RRR, +S1, +S2. Absent: diastolic murmur, gallop, rubs, systolic murmur - GI/Abdominal GI/Abdominal exam: Present: normal bowel sounds, soft, no peritoneal signs. Absent: distended, tenderness - Extremities Exam Extremities exam: Present: warm, radial pulses palpable and symmetrical. Absent : calf tenderness, cyanotic, pedal edema - Neurological Exam Neurological exam: Present: CN II-XII intact, oriented X3, no focal deficits. Absent: pronater drift, facial droop, speech deficit - Skin Skin exam: Present: dry, intact - Patient Status Disposition: Home, Self-Care - Discharge Instructions Instructions: High Fiber Diet (DC), Colectomy (DC), Bowel Obstruction (DC) Follow Up With: Kaycee Kwok BLUEPRINTER [Advanced Practice Nurse] - 12/21/17 1:00 pm Additional Instructions: General Surgical Discharge Instructions 1. No pushing, pulling, or lifting greater than 15 lbs for 2-4 weeks (depending upon procedure). 2. You may shower beginning today, but no tub baths, soaking, or swimming for 2 weeks. 3. You may resume driving when you are off narcotics and are safe to react in a car. 4. Take ibuprofen every 8 hours for discomfort. If this does not relieve discomfort, you may take the as needed Percocet. Take narcotics as directed. Do not take more narcotics then directed and do not share your narcotics with any other person. Do not drink alcohol while on narcotics. 5. Take stool softeners (Colace) or a water based laxative (Miralax) while taking narcotics. You may hold for loose stools. 6. Report any fevers greater than 100.5F, increase abdominal discomfort, drainage that looks like pus, increased redness or pain at the surgical site, or any vomiting. 7. Report any pain in the calves, shortness of breath, or rapid heartbeat. 8. Follow-up in the office as directed. 9. If you were prescribed antibiotics, do not stop them without talking to your provider. Wound Care: Remove dressing . Shower/Wash with antibacterial soap. May leave incisions open to air or cover with a dry dressing for comfort
== END 2017-12-08 14:43 | disposition home or self-care (01) | DRG 853 ==
LOC: 3BNU → ICNU 16:37 → SUATTDRO 16:47 → 3ANU 12-04 14:40
PROVIDERS: ADMIT Internal Medicine Cardiovascular Disease; ATTEND Internal Medicine